=== PATIENT | female | born 1930 | race Caucasian/White ===

== ENCOUNTER 2017-01-01 13:40 | Outpatient (CLI) | payer MEDICARE, OTHER | END 2017-01-01 13:41 | disposition home or self-care (01) | DX: G47.33 Obstructive sleep apnea (adult) (pediatric) (principal); G47.61 Periodic limb movement disorder | CPT/HCPCS: 99214; G0463 ==

== ENCOUNTER 2017-02-06 09:51 | Outpatient (CLI) | payer MEDICARE, OTHER | END 2017-02-06 09:52 | disposition home or self-care (01) | DX: I10 Essential (primary) hypertension (principal); E78.5 Hyperlipidemia, unspecified; E11.9 Type 2 diabetes mellitus without complications ==

== ENCOUNTER 2017-05-16 07:10 | Outpatient (CLI) | payer MEDICARE, OTHER ==
[2017-05-16 13:04] LABS: BASOPHILS % (AUTO) 0.7 %; EOSINOPHILS # (AUTO) 0.1 10^3/uL (0.0-0.7); EOSINOPHILS % (AUTO) 3.2 %; HCT - HEMATOCRIT 40.1 % (37.0-47.0); HGB - HEMOGLOBIN 13.4 g/dL (12.0-16.0); LYMPHOCYTES # (AUTO) 1.3 10^3/uL (1.5-3.5); LYMPHOCYTES % (AUTO) 28.8 %; MEAN CORPUSCULAR HEMOGLOBIN 32.1 pg (27.0-31.0); MEAN CORPUSCULAR HGB CONC 33.5 g/dL (32.0-36.0); MEAN CORPUSCULAR VOLUME 95.8 fL (81.0-99.0); MEAN PLATELET VOLUME 8.5 fL (7.9-10.8); MONOCYTES # (AUTO) 0.4 10^3/uL (0.0-1.0); MONOCYTES % (AUTO) 8.7 %; NEUTROPHILS # (AUTO) 2.7 10^3/uL (1.5-6.6); NEUTROPHILS % (AUTO) 58.6 %; RED BLOOD COUNT 4.18 10^6/uL (4.20-5.40); RED CELL DISTRIBUTION WIDTH 13.5 % (12.0-15.0); UNCORRECTED WHITE BLOOD COUNT 4.6 x10^3/uL; WHITE BLOOD COUNT 4.6 x10^3/uL (4.8-10.8)
[2017-05-16 13:36] LABS: ALBUMIN/GLOBULIN RATIO 1.3 (1.0-2.2); BILIRUBIN,TOTAL 0.6 mg/dL (0.2-1.0); BUN - BLOOD UREA NITROGEN 17 mg/dL (6-20); CALCIUM 9.4 mg/dL (8.5-10.3); CARBON DIOXIDE - CO2 31 mmol/L (21-32); CHLORIDE 97 mmol/L (101-111); CHOL/HDL RATIO 2.5 (<4.4); CHOLESTEROL 171 mg/dL; CREATININE 0.8 mg/dL (0.4-1.0); GFR - MDRD 68 (>89); GLUCOSE 179 mg/dL (70-100); HDL CHOLESTEROL 68 mg/dL; LDL/HDL RATIO 1.3 (<4.4); POTASSIUM 3.9 mmol/L (3.5-5.0); SODIUM 137 mmol/L (135-145); TOTAL PROTEIN 6.9 g/dL (6.7-8.2); TRIGLYCERIDES 91 mg/dL; VLDL CHOLESTEROL 18 mg/dL
[2017-05-16 14:16] LABS: HEMOGLOBIN A1C 0.94 g/dL
== END 2017-05-16 07:11 | disposition home or self-care (01) ==
LOC: LAB.WCP 07:10
PROVIDERS: ATTEND Family Medicine
DX: I10 Essential (primary) hypertension (principal)
CPT/HCPCS: 36415; 80053; 80061; 83036; 85025

== ENCOUNTER 2017-07-01 08:00 | Outpatient (CLI) | payer MEDICARE, OTHER ==
[2017-07-01 19:48] LABS: ALBUMIN/GLOBULIN RATIO 1.1 (1.0-2.2); BILIRUBIN,TOTAL 0.7 mg/dL (0.2-1.0); CALCIUM 9.6 mg/dL (8.5-10.3); CREATININE 0.9 mg/dL (0.4-1.0); POTASSIUM 4.3 mmol/L (3.5-5.0); TOTAL PROTEIN 7.6 g/dL (6.7-8.2)
== END 2017-07-01 08:01 | disposition home or self-care (01) ==
LOC: LAB.WCP 08:00
PROVIDERS: ATTEND Family Medicine
DX: I10 Essential (primary) hypertension (principal)
CPT/HCPCS: 36415; 80053

== ENCOUNTER 2017-08-14 08:39 | Outpatient (CLI) | payer MEDICARE, OTHER ==
[2017-08-14 12:48] LABS: BASOPHILS # (AUTO) 0.1 10^3/uL (0.0-0.1); BASOPHILS % (AUTO) 0.9 %; EOSINOPHILS # (AUTO) 0.1 10^3/uL (0.0-0.7); EOSINOPHILS % (AUTO) 1.8 %; HCT - HEMATOCRIT 40.5 % (37.0-47.0); HGB - HEMOGLOBIN 13.8 g/dL (12.0-16.0); LYMPHOCYTES # (AUTO) 1.3 10^3/uL (1.5-3.5); LYMPHOCYTES % (AUTO) 23.2 %; MEAN CORPUSCULAR HEMOGLOBIN 32.6 pg (27.0-31.0); MEAN CORPUSCULAR HGB CONC 33.9 g/dL (32.0-36.0); MEAN PLATELET VOLUME 8.3 fL (7.9-10.8); MONOCYTES # (AUTO) 0.5 10^3/uL (0.0-1.0); MONOCYTES % (AUTO) 8.3 %; NEUTROPHILS # (AUTO) 3.8 10^3/uL (1.5-6.6); NEUTROPHILS % (AUTO) 65.8 %; RED BLOOD COUNT 4.22 10^6/uL (4.20-5.40); RED CELL DISTRIBUTION WIDTH 13.4 % (12.0-15.0); UNCORRECTED WHITE BLOOD COUNT 5.8 x10^3/uL; WHITE BLOOD COUNT 5.8 x10^3/uL (4.8-10.8)
[2017-08-14 13:28] LABS: ALBUMIN/GLOBULIN RATIO 1.1 (1.0-2.2); BILIRUBIN,TOTAL 0.5 mg/dL (0.2-1.0); BUN - BLOOD UREA NITROGEN 16 mg/dL (6-20); CALCIUM 9.3 mg/dL (8.5-10.3); CARBON DIOXIDE - CO2 31 mmol/L (21-32); CHLORIDE 97 mmol/L (101-111); CHOL/HDL RATIO 2.4 (<4.4); CHOLESTEROL 151 mg/dL; CREATININE 0.8 mg/dL (0.4-1.0); GFR - MDRD 68 (>89); GLUCOSE 150 mg/dL (70-100); HDL CHOLESTEROL 63 mg/dL; HEMOGLOBIN A1C 0.96 g/dL; LDL/HDL RATIO 1.2 (<4.4); POTASSIUM 4.2 mmol/L (3.5-5.0); SODIUM 134 mmol/L (135-145); TOTAL PROTEIN 7.3 g/dL (6.7-8.2); TRIGLYCERIDES 73 mg/dL; VLDL CHOLESTEROL 15 mg/dL
== END 2017-08-14 08:40 | disposition home or self-care (01) ==
LOC: LAB.WCP 08:39
PROVIDERS: ATTEND Family Medicine
DX: I10 Essential (primary) hypertension (principal); E11.9 Type 2 diabetes mellitus without complications; E78.5 Hyperlipidemia, unspecified
CPT/HCPCS: 36415; 80053; 80061; 82043; 83036; 85025

== ENCOUNTER 2018-02-21 08:00 | Outpatient (CLI) | payer MEDICARE, OTHER ==
[2018-02-21 12:32] LABS: BASOPHILS # (AUTO) 0.1 10^3/uL (0.0-0.1); BASOPHILS % (AUTO) 0.8 %; EOSINOPHILS # (AUTO) 0.2 10^3/uL (0.0-0.7); EOSINOPHILS % (AUTO) 2.5 %; HGB - HEMOGLOBIN 13.5 g/dL (12.0-16.0); LYMPHOCYTES # (AUTO) 1.5 10^3/uL (1.5-3.5); LYMPHOCYTES % (AUTO) 24.7 %; MEAN CORPUSCULAR HEMOGLOBIN 32.3 pg (27.0-31.0); MEAN CORPUSCULAR HGB CONC 33.5 g/dL (32.0-36.0); MEAN CORPUSCULAR VOLUME 96.4 fL (81.0-99.0); MEAN PLATELET VOLUME 8.6 fL (7.9-10.8); MONOCYTES # (AUTO) 0.5 10^3/uL (0.0-1.0); MONOCYTES % (AUTO) 8.8 %; NEUTROPHILS # (AUTO) 3.8 10^3/uL (1.5-6.6); NEUTROPHILS % (AUTO) 63.2 %; PLT - PLATELET COUNT 169 10^3/uL (130-450); RED BLOOD COUNT 4.18 10^6/uL (4.20-5.40); RED CELL DISTRIBUTION WIDTH 14.1 % (12.0-15.0)
[2018-02-21 12:57] LABS: ALBUMIN 3.8 g/dL (3.2-5.5); ALBUMIN/GLOBULIN RATIO 1.2 (1.0-2.2); ALKALINE PHOSPHATASE 55 IU/L (42-121); ALT ALANINE AMINOTRANSFERASE 11 IU/L (10-60); AST ASPARTATE AMINOTRANSFERASE 22 IU/L (10-42); BILIRUBIN,TOTAL 0.7 mg/dL (0.2-1.0); BUN - BLOOD UREA NITROGEN 24 mg/dL (6-20); CALCIUM 9.3 mg/dL (8.5-10.3); CARBON DIOXIDE - CO2 26 mmol/L (21-32); CHLORIDE 99 mmol/L (101-111); CHOL/HDL RATIO 2.5 (<4.4); CHOLESTEROL 175 mg/dL; CREATININE 0.8 mg/dL (0.4-1.0); GFR - MDRD 68 (>89); GLUCOSE 166 mg/dL (70-100); HDL CHOLESTEROL 69 mg/dL; LDL CHOLESTEROL,CALCULATED 87 mg/dL; LDL/HDL RATIO 1.3 (<4.4); SODIUM 135 mmol/L (135-145); TOTAL PROTEIN 7.1 g/dL (6.7-8.2); VLDL CHOLESTEROL 19 mg/dL
[2018-02-21 13:19] LABS: HB2 TOTAL 14.6 g/dL; HEMOGLOBIN A1C 0.99 g/dL; HEMOGLOBIN A1C % 8.4 % (4.6-6.2)
== END 2018-02-21 08:01 | disposition home or self-care (01) ==
LOC: LAB.WCP 08:00
PROVIDERS: ATTEND Family Medicine
DX: E11.29 Type 2 diabetes mellitus with other diabetic kidney complication (principal); I48.0 Paroxysmal atrial fibrillation; E78.5 Hyperlipidemia, unspecified; I10 Essential (primary) hypertension
CPT/HCPCS: 36415; 80053; 80061; 82043; 83036; 83721; 84443; 85025

== ENCOUNTER 2018-03-28 08:00 | Outpatient (CLI) | payer MEDICARE, OTHER ==
[2018-03-28 19:35] LABS: CALCIUM 9.5 mg/dL (8.5-10.3); CREATININE 0.9 mg/dL (0.4-1.0)
== END 2018-03-28 08:01 | disposition home or self-care (01) ==
LOC: LAB.WCP 08:00
PROVIDERS: ATTEND Family Medicine
DX: I10 Essential (primary) hypertension (principal)
CPT/HCPCS: 36415; 80048

== ENCOUNTER 2018-04-15 08:00 | Outpatient (CLI) | payer MEDICARE, OTHER ==
[2018-04-15 19:24] LABS: CALCIUM 9.5 mg/dL (8.5-10.3); CREATININE 0.7 mg/dL (0.4-1.0)
== END 2018-04-15 08:01 ==
LOC: LAB.WCP 08:00
PROVIDERS: ATTEND Family Medicine
DX: I10 Essential (primary) hypertension (principal)
CPT/HCPCS: 36415; 80048

== ENCOUNTER 2018-06-30 11:07 | Outpatient (CLI) | payer MEDICARE, OTHER ==
[2018-06-30 19:48] LABS: CALCIUM 9.3 mg/dL (8.5-10.3); CREATININE 0.8 mg/dL (0.4-1.0)
== END 2018-06-30 11:08 ==
LOC: LAB.WCP 11:07
PROVIDERS: ATTEND Family Medicine
DX: I10 Essential (primary) hypertension (principal)
CPT/HCPCS: 36415; 80048

== ENCOUNTER 2018-07-14 13:18 | Outpatient (CLI) | payer MEDICARE, OTHER ==
[2018-07-14 12:49] LABS: BASOPHILS % (AUTO) 0.9 %; EOSINOPHILS # (AUTO) 0.2 10^3/uL (0.0-0.7); EOSINOPHILS % (AUTO) 3.1 %; HGB - HEMOGLOBIN 13.4 g/dL (12.0-16.0); LYMPHOCYTES # (AUTO) 1.5 10^3/uL (1.5-3.5); LYMPHOCYTES % (AUTO) 26.6 %; MEAN CORPUSCULAR HEMOGLOBIN 32.5 pg (27.0-31.0); MEAN CORPUSCULAR HGB CONC 33.5 g/dL (32.0-36.0); MEAN PLATELET VOLUME 8.3 fL (7.9-10.8); MONOCYTES # (AUTO) 0.5 10^3/uL (0.0-1.0); MONOCYTES % (AUTO) 9.6 %; NEUTROPHILS # (AUTO) 3.4 10^3/uL (1.5-6.6); NEUTROPHILS % (AUTO) 59.8 %; PLT - PLATELET COUNT 193 10^3/uL (130-450); RED BLOOD COUNT 4.12 10^6/uL (4.20-5.40); RED CELL DISTRIBUTION WIDTH 13.3 % (12.0-15.0); WHITE BLOOD COUNT 5.7 x10^3/uL (4.8-10.8)
[2018-07-14 13:31] LABS: ALBUMIN 4.1 g/dL (3.2-5.5); ALBUMIN/GLOBULIN RATIO 1.2 (1.0-2.2); ALKALINE PHOSPHATASE 51 IU/L (42-121); ALT ALANINE AMINOTRANSFERASE 13 IU/L (10-60); AST ASPARTATE AMINOTRANSFERASE 27 IU/L (10-42); BILIRUBIN,TOTAL 0.8 mg/dL (0.2-1.0); BUN - BLOOD UREA NITROGEN 19 mg/dL (6-20); CALCIUM 9.7 mg/dL (8.5-10.3); CARBON DIOXIDE - CO2 29 mmol/L (21-32); CHLORIDE 96 mmol/L (101-111); CHOL/HDL RATIO 2.1 (<4.4); CHOLESTEROL 166 mg/dL; CREATININE 0.9 mg/dL (0.4-1.0); GFR - MDRD 59 (>89); GLUCOSE 164 mg/dL (70-100); HDL CHOLESTEROL 79 mg/dL; LDL CHOLESTEROL,CALCULATED 70 mg/dL; LDL/HDL RATIO 0.9 (<4.4); SODIUM 133 mmol/L (135-145); TOTAL PROTEIN 7.4 g/dL (6.7-8.2); VLDL CHOLESTEROL 17 mg/dL
[2018-07-14 14:12] LABS: HB2 TOTAL 14.1 g/dL; HEMOGLOBIN A1C 0.96 g/dL; HEMOGLOBIN A1C % 8.4 % (4.6-6.2)
== END 2018-07-14 13:19 | disposition home or self-care (01) ==
LOC: LAB.WCP 13:18
PROVIDERS: ATTEND Family Medicine
DX: I10 Essential (primary) hypertension (principal); E11.9 Type 2 diabetes mellitus without complications; E78.5 Hyperlipidemia, unspecified
CPT/HCPCS: 36415; 80053; 80061; 83036; 83721; 85025

== ENCOUNTER 2018-09-25 11:39 | Outpatient (CLI) | payer MEDICARE, OTHER | END 2018-09-25 11:40 | disposition critical access hospital (66) | LOC: EMS 11:39 | PROVIDERS: ATTEND Surgery | DX: M54.9 Dorsalgia, unspecified (principal) | CPT/HCPCS: A0425; A0429 ==

== ENCOUNTER 2018-09-25 11:43 | Emergency (ER) | payer MEDICARE, OTHER ==
--- NOTE | 2018-09-25 12:03 | ED Physician Documentation ---
PD HPI BACK PAIN - Stated complaint Stated Complaint: BACK PAIN - Chief complaint Chief Complaint: Back Pain - History obtained from History obtained from: Patient - History of Present Illness Timing - onset: How many weeks ago (1) Timing - duration: Weeks (1) Timing - details: Abrupt onset (onset of lumbar pain a week ago without noted injury, was just bending over, but was abrupt and continued.), Still present, Waxing and waning Location: Lower, Other (midline and slightly to right) Quality: Pain. No: Spasm Associated symptoms: No: Fever, Weakness, Numbness, Incontinent of urine Improves with: Rest. No: Meds (seen by PMD and had xray of lumbar which was reportedly without acute process and Rx with Tylenol#3 and order for PT, which was to start today. Patient in pain with ROM and PT would not start on her without some improvement in the pain. Patient and family state no improvement with the codeine.) Worsened by: Movement. No: Palpation Contributing factors: No: Lifting, Twisting, Trauma (was just bending over when pain started.) Similar symptoms before: Has not had sx before (has had prior spinal fusion surgery years ago with some back pains at times. Current pain is unusual.) Recently seen: Clinic Review of Systems Constitutional: denies: Fever, Chills Nose: denies: Rhinorrhea / runny nose, Congestion Throat: denies: Sore throat Cardiac: denies: Chest pain / pressure Respiratory: denies: Cough GI: reports: Constipation (for past several days/week.). 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 HEENT: Cataracts, Other - Present Medications Home Medications: Ambulatory Orders Medication Instructions Recorded Confirmed Atorvastatin Calcium 09/25/18 Biotin 09/25/18 Cholecalciferol (Vitamin D3) 09/25/18 [Vitamin D3] Dexamethasone [Decadron] 4 mg PO DAILY #5 tablet 09/25/18 Docusate Sodium 100 mg PO DAILY #30 capsule 09/25/18 Felodipine [Felodipine ER] 09/25/18 Methocarbamol [Robaxin] 500 mg PO Q6H PRN #25 tablet 09/25/18 [place]-3S/Dha/Epa/Fish Oil [Fish 09/25/18 Oil 1,200 mg Softgel] Potassium Chloride [Klor-Con 10] 09/25/18 Sotalol HCl [Betapace] 09/25/18 Terbinafine HCl [Lamisil At] 09/25/18 Timolol 0.5% Ophth Drops [Timoptic 09/25/18 0.5% Ophth Drops] Valsartan 09/25/18 Warfarin Sodium [Jantoven] 09/25/18 glipiZIDE ER [Glucotrol Xl] 09/25/18 hydroCHLOROthiazide 09/25/18 [Hydrochlorothiazide] metFORMIN [Glucophage] 09/25/18 oxyCODONE [Roxicodone] 5 mg PO Q8H PRN #20 tablet 09/25/18 - Allergies Allergies/Adverse Reactions: Allergies Allergy/AdvReac Type Severity Reaction Status Date / Time No Known Drug Allergies Allergy Verified 09/25/18 11:47 - Social History Does the pt smoke?: No Smoking Status: Never smoker Does the pt drink ETOH?: No Does the pt have substance abuse?: No - Immunizations Immunizations are current?: Yes PD ED PE NORMAL - Vitals Vital signs reviewed: Yes - General General: Alert and oriented X 3, Well developed/nourished, Other (appears uncomfortable with ROM, and sitting/lying stiffly on cart. ) - HEENT HEENT: Atraumatic - Neck Neck: Supple, no meningeal sign, No adenopathy - Cardiac Cardiac: RRR, No murmur - Respiratory Respiratory: Clear bilaterally - Abdomen Abdomen: Soft, Non tender - Back Back: No CVA TTP, Other (some tenderness to percussion mid lumbar area. No rash nor redness. Mild muscular tenderness adjacent muscles. ) - Derm Derm: Normal color, Warm and dry - Extremities Extremities: No tenderness to palpate, Normal ROM s pain, No calf tenderness / cord, Other (mild edema in both legs. bruising noted anteriorly in both. ) - Neuro Neuro: Alert and oriented X 3, No motor deficit, No sensory deficit, Normal speech, Other (2+ reflexes at knees. ) Results - Vitals Vitals: Vital Signs - 24 hr 09/25/18 09/25/18 09/25/18 11:43 12:04 13:44 Temperature 36.7 C Heart Rate 66 63 60 Respiratory 16 16 Rate Blood Pressure 183/83 H 157/64 H 158/72 H O2 Saturation 99 97 97 09/25/18 09/25/18 14:30 14:36 Temperature 36.2 C L Heart Rate 64 64 Respiratory 16 18 Rate Blood Pressure 178/73 H 178/73 H O2 Saturation 94 95 Oxygen O2 Source Room air - Labs Labs: Laboratory Tests 09/25/18 13:15 PT 57.6 H INR 5.2 H* - Rads (name of study) lumbar CT Radiology: Prelim report reviewed (prior surgical changes. There is mild superior endplate compression fracture L1 without comparisons. No edema in the area.) PD MEDICAL DECISION MAKING - ED course Complexity details: reviewed results (L1 mild compression Fx, presume new. This is small enough to not need brace, and should not prohibit some PT to help with stregnthening and ROM. She was Rx T#3 without improvement, and we can Rx a better pain med. She was wanting stronger pain med in ER for ROM and given IM med. She felt "loopy" but improved enough pain to feel able to head home. Her INR was elevated but no change in diet or such and is usually in good range, so will just hold it 2 doses and then recheck without changing baseline dosing. Could be from altered stool output or recent med. ), re-evaluated patient, considered differential, d/w patient, d/w family Departure - Departure Disposition: 01 Home, Self Care Clinical Impression: Lumbar back pain, Compression fracture, Elevated INR Condition: Stable Record reviewed to determine appropriate education?: Yes Instructions: ED Fx Comp Vertebral Prescriptions: Dexamethasone [Decadron] 4 mg PO DAILY #5 tablet Docusate Sodium 100 mg PO DAILY #30 capsule Methocarbamol [Robaxin] 500 mg PO Q6H PRN #25 tablet PRN Reason: Spasms oxyCODONE [Roxicodone] 5 mg PO Q8H PRN #20 tablet PRN Reason: Pain Comments: There is a very mild compression fracture deformity at the top part of L1. This could be a chronic finding but I did not have a comparison view at this point. It could correlate with your pain however and so we should treat it which would be really just pain medicine, anti-inflammatories and muscle relaxant. Physical therapy is reasonable and just tell them about the finding and they should be able to accommodate the range of motion exercises. There is no need for a brace in particular. Follow-up with your primary care early next week for reevaluation of the pain and also a recheck of your INR. Your INR was elevated today so we will hold your warfarin tonight and tomorrow and then resume normal doses. Add a stool softener docusate daily to reduce constipation from the pain medicine. Forms: Activity restrictions Discharge Date/Time: 09/25/18 14:39
[2018-09-25] MEDS ORDERED: DEXAMETHASONE 10 MG/ML VIAL PO STA (12:26)
[2018-09-25] MEDS ORDERED: METHOCARBAMOL 500 MG TABLET PO STA (12:26)
[2018-09-25] MEDS ORDERED: KETOROLAC 15 MG/ML VIAL IM STA (12:26)
[2018-09-25] MEDS ORDERED: HYDROmorphone 1 MG/ML CARPUJECT IM STA (12:26)
[2018-09-25 13:37] LABS: PT - PROTHROMBIN TIME 57.6 secs (9.9-12.6)
[2018-09-25 13:41] LABS: INR 5.2 (0.8-1.2)
--- NOTE | 2018-09-25 13:41 | CT Report ---
Reason: low back pain several days; no trauma Procedure Date: 09/25/2018 Accession Number: [id number] / [id number] Procedure: CT - Lumbar Spine W/O CPT Code: FULL RESULT: EXAM: CT LUMBAR SPINE WITHOUT CONTRAST EXAM DATE: 09/25/2018 12:49 PM. CLINICAL HISTORY: Low back pain for several days; no trauma. COMPARISONS: Lumbar spine 2 views 09/23/2018 11:14 AM. X-ray chest PA and lateral 12/16/2012 10:38 AM. TECHNIQUE: Thin-section axial images were acquired of the lumbar spine from T12 to S1 without contrast. Post-processing: Coronal and sagittal reformats. Other: None. In accordance with CT protocol optimization, one or more of the following dose reduction techniques were utilized for this exam: automated exposure control, adjustment of mA and/or KV based on patient size, or use of iterative reconstructive technique. FINDINGS: Alignment: Moderate, 22 degree, dextrorotatory scoliosis is seen centered at L2. 5 mm right lateral subluxation of L1 in relation to T12 and L3 in relation to L4 is noted. Multilevel listhesis is seen, includin.5 mm spondylolisthesis at L4-L5, 3.5 mm retrolisthesis at L1-L2, 4 mm retrolisthesis at T12-L1. Bones: Note is made of a transitional vertebrae at the lumbosacral junction. Correlating with prior lumbar spine plain films and chest x-ray, numbering assumes partial sacralization of L5 bilaterally, greater on the left. An L5-S1 hypoplastic disk level is present. Hypoplastic ribs are seen at T12 bilaterally. There is an acute mild compression fracture of the L1 vertebral body superior endplate. Mild, 25%, compression deformity is seen. Multiple peripheral fracture fragments are seen from the superior endplate projected outward. Mild broad-based retropulsion of the superior endplate is seen effacing the ventral thecal sac, without underlying canal stenosis. Disk Levels/Facets: T11-T12: Moderate bridging right anterolateral osteophyte formation. T12-L1: L1 superior endplate fracture. Vacuum cleft phenomenon. Mild retrolisthesis. Mild circumferential bulge of disk/osteophyte complex, as well as L1 superior endplate fracture fragments. No stenosis. L1-L2: Mild loss of disk space height is seen, greater to the left. Vacuum cleft phenomenon. Mild retrolisthesis. Mild dorsal with moderate lateral and ventral circumferential disk bulge. Left osseous foraminal stenosis. L2-L3: Mild left-sided degenerative facet change. Mild circumferential disk bulge. Mild effacement of exited left L2 nerve root. Mild lateral foraminal stenosis. L3-L4: Postoperative change from a right central laminotomy and partial facetectomy. Moderate degenerative facet change. Mild circumferential disk bulge. Effacement of exiting L3 nerve roots. Mild bilateral foraminal stenosis. L4-L5: Postoperative change from a right central laminectomy and partial facetectomy. Moderate hypertrophic degenerative facet change. Mild circumferential disk bulge. No stenosis. L5-S1: Unremarkable. Partial sacralization of L5. No stenosis. Musculature: Fatty atrophy of posterior paraspinous musculature is seen in the mid and lower lumbar and upper sacral region. Other: Mild atelectasis or scarring is seen in the posterior lung bases bilaterally. An oval 13 mm calcified nodule is seen in the posteromedial inferior left costophrenic sulcus. Marked vascular calcification is seen involving visualized aorta, great vessels off the aorta, and iliac arteries. Calcification nearly completely fills the lumen of the proximal right common iliac artery at the level of the aortic bifurcation. Severe stenosis at this site is suspected. The partially visualized retroperitoneum is unremarkable. IMPRESSION: 1. 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 This is assumed to represent partial sacralization of L5 greater on the left. Hypoplastic ribs are seen at T12 bilaterally. 2. Mild compression fracture of the L1 superior endplate. Multiple fracture fragments are seen radiating outward from the superior endplate. 3. Moderate dextrorotatory scoliosis of the lumbar spine. Right lateral subluxation of L1 in relation to T12 and L3 in relation to L4 is seen. Multilevel listhesis is noted. 4. Marked atherosclerotic vascular calcification. 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 5. Postoperative change and spondylosis throughout the lumbar spine as noted above. RADIA
[2018-09-25 14:33] VITALS: BP 178/73
== END 2018-09-25 14:39 | disposition home or self-care (01) ==
LOC: ED 11:43
DX: M54.5 Low back pain (principal); S32.018A Other fracture of first lumbar vertebra, initial encounter for closed fracture; X58.XXXA Exposure to other specified factors, initial encounter; R79.1 Abnormal coagulation profile; I10 Essential (primary) hypertension; E11.9 Type 2 diabetes mellitus without complications; I48.91 Unspecified atrial fibrillation; Z79.01 Long term (current) use of anticoagulants
CPT/HCPCS: 72131; 85610; 96372; 99283; 99284; A9270; J1170

== ENCOUNTER 2018-10-15 10:45 | Outpatient (CLI) | payer MEDICARE, OTHER ==
[2018-10-15 19:08] LABS: PT - PROTHROMBIN TIME 71.3 secs (9.9-12.6)
[2018-10-15 19:21] LABS: HB2 TOTAL 13.2 g/dL; HEMOGLOBIN A1C 0.93 g/dL; HEMOGLOBIN A1C % 8.6 % (4.6-6.2)
[2018-10-15 19:25] LABS: BASOPHILS % (AUTO) 0.4 %; EOSINOPHILS # (AUTO) 0.1 10^3/uL (0.0-0.7); HGB - HEMOGLOBIN 12.3 g/dL (12.0-16.0); LYMPHOCYTES # (AUTO) 0.9 10^3/uL (1.5-3.5); LYMPHOCYTES % (AUTO) 14.3 %; MEAN CORPUSCULAR HEMOGLOBIN 32.6 pg (27.0-31.0); MEAN CORPUSCULAR HGB CONC 33.2 g/dL (32.0-36.0); MEAN CORPUSCULAR VOLUME 98.4 fL (81.0-99.0); MEAN PLATELET VOLUME 6.9 fL (7.9-10.8); MONOCYTES # (AUTO) 0.6 10^3/uL (0.0-1.0); MONOCYTES % (AUTO) 8.9 %; NEUTROPHILS # (AUTO) 4.9 10^3/uL (1.5-6.6); NEUTROPHILS % (AUTO) 75.4 %; PLT - PLATELET COUNT 270 10^3/uL (130-450); RED BLOOD COUNT 3.77 10^6/uL (4.20-5.40); RED CELL DISTRIBUTION WIDTH 13.3 % (12.0-15.0); WHITE BLOOD COUNT 6.5 x10^3/uL (4.8-10.8)
[2018-10-15 19:35] LABS: ALBUMIN 3.3 g/dL (3.2-5.5); ALBUMIN/GLOBULIN RATIO 0.9 (1.0-2.2); ALKALINE PHOSPHATASE 106 IU/L (42-121); ALT ALANINE AMINOTRANSFERASE 17 IU/L (10-60); AST ASPARTATE AMINOTRANSFERASE 26 IU/L (10-42); BILIRUBIN,TOTAL 0.5 mg/dL (0.2-1.0); BUN - BLOOD UREA NITROGEN 17 mg/dL (6-20); CALCIUM 8.9 mg/dL (8.5-10.3); CARBON DIOXIDE - CO2 28 mmol/L (21-32); CHLORIDE 89 mmol/L (101-111); CHOL/HDL RATIO 2.5 (<4.4); CHOLESTEROL 135 mg/dL; CREATININE 0.9 mg/dL (0.4-1.0); GFR - MDRD 59 (>89); GLUCOSE 314 mg/dL (70-100); HDL CHOLESTEROL 53 mg/dL; LDL CHOLESTEROL,CALCULATED 59 mg/dL; LDL/HDL RATIO 1.1 (<4.4); SODIUM 127 mmol/L (135-145); TOTAL PROTEIN 6.8 g/dL (6.7-8.2); VLDL CHOLESTEROL 23 mg/dL
[2018-10-15 19:59] LABS: INR 6.4 (0.8-1.2)
== END 2018-10-15 10:46 ==
LOC: LAB.WCP 10:45
PROVIDERS: ATTEND Family Medicine
DX: I10 Essential (primary) hypertension (principal); E11.9 Type 2 diabetes mellitus without complications; Z79.01 Long term (current) use of anticoagulants; E78.5 Hyperlipidemia, unspecified; I48.0 Paroxysmal atrial fibrillation
CPT/HCPCS: 36415; 80053; 80061; 83036; 83721; 85025; 85610

== ENCOUNTER → 2018-10-21 | Outpatient (CLI) | payer MEDICARE, OTHER ==
[2018-10-21 19:15] LABS: INR 9.6 (0.8-1.2)
== END ==
LOC: LAB.WCP 08:00
PROVIDERS: ATTEND Family Medicine
DX: Z79.01 Long term (current) use of anticoagulants (principal)
CPT/HCPCS: 36415; 85610

== ENCOUNTER 2018-11-19 18:49 | Outpatient (CLI) | payer MEDICARE, OTHER ==
--- NOTE | 2018-11-20 15:29 | Ultrasound Report ---
Reason: HYPERTENSION,BENIGN ESSENTIAL Procedure Date: 11/19/2018 Accession Number: [id number] / [id number] Procedure: US - Retroperitoneal CPT Code: FULL RESULT: EXAM: RENAL ULTRASOUND. EXAM DATE: 11/19/2018 08:42 PM. CLINICAL HISTORY: Hypertension, benign essential. COMPARISON: None. TECHNIQUE: Real-time scanning was performed with static images obtained. FINDINGS: Right Kidney: 8.8 x 3.7 x 4.3 cm. Normal echotexture with no stones, contour-deforming masses, or hydronephrosis. Left Kidney: 9.7 x 4.7 x 4.5 cm. Normal echotexture with no stones, contour-deforming masses, or hydronephrosis. Bladder: Bilateral jets seen. The prevoid bladder volume was 692 cc. The postvoid bladder volume was 715 cc. Other: None. IMPRESSION: No specific anatomic abnormalities of the kidneys or bladder. Large postvoiding residual; patient essentially unable to void for this exam. RADIA
== END 2018-11-19 18:50 | disposition home or self-care (01) ==
LOC: DI 18:49
PROVIDERS: ATTEND Family Medicine
DX: I10 Essential (primary) hypertension (principal)
CPT/HCPCS: 76770

== ENCOUNTER 2019-01-06 13:30 | Outpatient (CLI) | payer MEDICARE, OTHER ==
[2019-01-06 18:59] LABS: BASOPHILS % (AUTO) 0.5 %; EOSINOPHILS % (AUTO) 0.5 %; HGB - HEMOGLOBIN 12.2 g/dL (12.0-16.0); LYMPHOCYTES # (AUTO) 1.4 10^3/uL (1.5-3.5); LYMPHOCYTES % (AUTO) 19.3 %; MEAN CORPUSCULAR HEMOGLOBIN 32.1 pg (27.0-31.0); MEAN CORPUSCULAR HGB CONC 32.8 g/dL (32.0-36.0); MEAN PLATELET VOLUME 7.6 fL (7.9-10.8); MONOCYTES # (AUTO) 0.7 10^3/uL (0.0-1.0); MONOCYTES % (AUTO) 9.9 %; NEUTROPHILS # (AUTO) 5.1 10^3/uL (1.5-6.6); NEUTROPHILS % (AUTO) 69.8 %; PLT - PLATELET COUNT 295 10^3/uL (130-450); RED BLOOD COUNT 3.79 10^6/uL (4.20-5.40); WHITE BLOOD COUNT 7.3 x10^3/uL (4.8-10.8)
[2019-01-06 19:34] LABS: HB2 TOTAL 13.3 g/dL; HEMOGLOBIN A1C 0.69 g/dL; HEMOGLOBIN A1C % 6.9 % (4.6-6.2)
[2019-01-06 19:35] LABS: ALBUMIN 3.5 g/dL (3.2-5.5); ALBUMIN/GLOBULIN RATIO 0.9 (1.0-2.2); ALKALINE PHOSPHATASE 63 IU/L (42-121); ALT ALANINE AMINOTRANSFERASE 10 IU/L (10-60); AST ASPARTATE AMINOTRANSFERASE 22 IU/L (10-42); BILIRUBIN,TOTAL 0.5 mg/dL (0.2-1.0); BUN - BLOOD UREA NITROGEN 13 mg/dL (6-20); CARBON DIOXIDE - CO2 27 mmol/L (21-32); CHLORIDE 89 mmol/L (101-111); CHOL/HDL RATIO 2.2 (<4.4); CHOLESTEROL 145 mg/dL; CREATININE 0.7 mg/dL (0.4-1.0); GFR - MDRD 79 (>89); GLUCOSE 201 mg/dL (70-100); HDL CHOLESTEROL 65 mg/dL; LDL CHOLESTEROL,CALCULATED 55 mg/dL; LDL/HDL RATIO 0.8 (<4.4); SODIUM 130 mmol/L (135-145); TOTAL PROTEIN 7.4 g/dL (6.7-8.2); VLDL CHOLESTEROL 25 mg/dL
== END 2019-01-06 13:31 | disposition home or self-care (01) ==
LOC: LAB.WCP 13:30
PROVIDERS: ATTEND Family Medicine
DX: I10 Essential (primary) hypertension (principal); E11.9 Type 2 diabetes mellitus without complications; E78.5 Hyperlipidemia, unspecified
CPT/HCPCS: 36415; 80053; 80061; 83036; 83721; 85025

== ENCOUNTER 2019-02-03 08:00 | Outpatient (CLI) | payer MEDICARE, OTHER | END 2019-02-03 23:59 | disposition home or self-care (01) | LOC: LAB.WCP 08:00 | PROVIDERS: ATTEND Family Medicine | DX: I48.0 Paroxysmal atrial fibrillation (principal); Z79.01 Long term (current) use of anticoagulants ==

== ENCOUNTER 2019-02-10 08:00 | Outpatient (CLI) | payer MEDICARE, OTHER | END 2019-02-10 23:59 | disposition home or self-care (01) | LOC: LAB.WCP 08:00 | PROVIDERS: ATTEND Physician Assistant | DX: I48.0 Paroxysmal atrial fibrillation (principal); Z79.01 Long term (current) use of anticoagulants ==

== ENCOUNTER 2019-02-16 12:33 | Outpatient (CLI) | payer MEDICARE, OTHER ==
--- NOTE | 2019-02-16 15:25 | Ultrasound Report ---
Reason: URINARY BLADDER RETENTION Procedure Date: 02/16/2019 Accession Number: [id number] / [id number] Procedure: US - Bladder CPT Code: FULL RESULT: EXAM: PELVIS ULTRASOUND, LIMITED EXAM DATE: 02/16/2019 01:10 PM. CLINICAL HISTORY: Urinary bladder retention. COMPARISON: None. TECHNIQUE: Real-time scanning was performed with static images obtained. FINDINGS: Pre-voiding urinary bladder is grossly unremarkable with pre-voiding volume of 438 cc. Postvoiding urinary bladder is unchanged at 441 cc. IMPRESSION: Patient unable to void/large postvoiding residual equal to pre-voiding bladder volume. RADIA
== END 2019-02-16 12:34 | disposition home or self-care (01) ==
LOC: DI 12:33
PROVIDERS: ATTEND Internal Medicine Nephrology
DX: R33.9 Retention of urine, unspecified (principal)
CPT/HCPCS: 76857

== ENCOUNTER 2019-02-18 08:00 | Outpatient (CLI) | payer MEDICARE, OTHER | END 2019-02-18 23:59 | disposition home or self-care (01) | LOC: LAB.WCP 08:00 | PROVIDERS: ATTEND Physician Assistant | DX: I48.0 Paroxysmal atrial fibrillation (principal); Z79.01 Long term (current) use of anticoagulants | CPT/HCPCS: 81025 ==

== ENCOUNTER 2019-02-24 08:00 | Outpatient (CLI) | payer MEDICARE, OTHER | END 2019-02-24 23:59 | disposition home or self-care (01) | LOC: LAB.WCP 08:00 | PROVIDERS: ATTEND Family Medicine | DX: I48.0 Paroxysmal atrial fibrillation (principal); Z79.01 Long term (current) use of anticoagulants ==

== ENCOUNTER 2019-03-10 08:00 | Outpatient (CLI) | payer MEDICARE, OTHER | END 2019-03-10 23:59 | disposition home or self-care (01) | LOC: LAB.WCP 08:00 | PROVIDERS: ATTEND Family Medicine | DX: I48.0 Paroxysmal atrial fibrillation (principal); Z79.01 Long term (current) use of anticoagulants ==

== ENCOUNTER 2019-04-16 08:01 | Outpatient (CLI) | payer MEDICARE, OTHER ==
[2019-04-16 13:18] LABS: ALBUMIN 3.6 g/dL (3.2-5.5); ALBUMIN/GLOBULIN RATIO 1.1 (1.0-2.2); ALKALINE PHOSPHATASE 59 IU/L (42-121); ALT ALANINE AMINOTRANSFERASE 10 IU/L (10-60); AST ASPARTATE AMINOTRANSFERASE 23 IU/L (10-42); BILIRUBIN,TOTAL 0.7 mg/dL (0.2-1.0); BUN - BLOOD UREA NITROGEN 17 mg/dL (6-20); CALCIUM 9.5 mg/dL (8.5-10.3); CARBON DIOXIDE - CO2 30 mmol/L (21-32); CHLORIDE 98 mmol/L (101-111); CHOL/HDL RATIO 2.4 (<4.4); CHOLESTEROL 160 mg/dL; CREATININE 0.8 mg/dL (0.4-1.0); GFR - MDRD 68 (>89); GLUCOSE 150 mg/dL (70-100); HDL CHOLESTEROL 68 mg/dL; LDL CHOLESTEROL,CALCULATED 78 mg/dL; LDL/HDL RATIO 1.1 (<4.4); SODIUM 135 mmol/L (135-145); VLDL CHOLESTEROL 14 mg/dL
[2019-04-16 13:24] LABS: BASOPHILS # (AUTO) 0.1 10^3/uL (0.0-0.1); BASOPHILS % (AUTO) 1.2 %; EOSINOPHILS # (AUTO) 0.2 10^3/uL (0.0-0.7); EOSINOPHILS % (AUTO) 2.9 %; LYMPHOCYTES # (AUTO) 1.6 10^3/uL (1.5-3.5); LYMPHOCYTES % (AUTO) 30.2 %; MEAN CORPUSCULAR HEMOGLOBIN 31.1 pg (27.0-31.0); MEAN CORPUSCULAR HGB CONC 33.1 g/dL (32.0-36.0); MEAN PLATELET VOLUME 8.1 fL (7.9-10.8); MONOCYTES # (AUTO) 0.4 10^3/uL (0.0-1.0); NEUTROPHILS % (AUTO) 57.7 %; PLT - PLATELET COUNT 225 10^3/uL (130-450); RED BLOOD COUNT 4.17 10^6/uL (4.20-5.40); RED CELL DISTRIBUTION WIDTH 14.6 % (12.0-15.0); WHITE BLOOD COUNT 5.3 x10^3/uL (4.8-10.8)
[2019-04-16 13:26] LABS: HB2 TOTAL 13.6 g/dL; HEMOGLOBIN A1C 0.81 g/dL; HEMOGLOBIN A1C % 7.6 % (4.6-6.2)
== END 2019-04-16 08:02 | disposition home or self-care (01) ==
LOC: LAB.WCP 08:01
PROVIDERS: ATTEND Family Medicine
DX: E87.1 Hypo-osmolality and hyponatremia (principal); E78.5 Hyperlipidemia, unspecified; I10 Essential (primary) hypertension; E11.9 Type 2 diabetes mellitus without complications
CPT/HCPCS: 36415; 80053; 80061; 83036; 83721; 85025

== ENCOUNTER 2019-05-19 15:32 | Outpatient (CLI) | payer MEDICARE, OTHER ==
--- NOTE | 2019-05-20 11:05 | XRAY Report ---
Reason: LOCALIZED SWELLING,MASS AND LUMP,LEFT UPPER LIMB Procedure Date: 05/19/2019 Accession Number: [id number] / [id number] Procedure: WCP - Forearm LT CPT Code: FULL RESULT: EXAM: LEFT FOREARM RADIOGRAPHY EXAM DATE: 05/19/2019 03:43 PM. CLINICAL HISTORY: Lump on midshaft of forearm. COMPARISON: None. TECHNIQUE: 2 views. FINDINGS: Bones: Advanced degenerative changes of the base of the thumb are noted. There is no radiographic osseous abnormality of the diaphysis of the radius or ulna. No fractures or bone lesions. Joints: Normal. No effusions or subluxations in the visualized wrist or elbow joints. Soft Tissues: Focal prominence of soft tissues is seen along the dorsal aspect of the forearm. IMPRESSION: No aggressive osseous lesion, fracture or dislocation is detected. RADIA
== END 2019-05-19 15:33 | disposition home or self-care (01) ==
LOC: DI.WCP 15:32
PROVIDERS: ATTEND Family Medicine
DX: R22.32 Localized swelling, mass and lump, left upper limb (principal)

== ENCOUNTER 2019-05-30 13:23 | Outpatient (CLI) | payer MEDICARE, OTHER ==
--- NOTE | 2019-06-02 09:39 | Ultrasound Report ---
Reason: LOCALIZED SWELLING, MASS AND LUMP IN LEFT ARM, UPPER LIMB Procedure Date: 05/30/2019 Accession Number: [id number] / [id number] Procedure: US - Ext Limited Non Vascular CPT Code: FULL RESULT: EXAM: LEFT UPPER EXTREMITY ULTRASOUND - LIMITED EXAM DATE: 05/30/2019 02:02 PM. CLINICAL HISTORY: LOCALIZED SWELLING, MASS AND LUMP IN LEFT ARM, UPPER LIMB. COMPARISON: None. TECHNIQUE: Real-time scanning was performed with static images obtained. FINDINGS: There is an approximately 1.1 x 0.5 x 1.9 cm heterogeneous, solid, subcutaneous focus at the posterior proximal left forearm which corresponds to the area of palpable concern. A small amount of blood flow is detected within this area. Selected sonographic images of the posterior aspect of the right upper extremity were also submitted for interpretation. No definite discrete cystic or solid mass is seen on these images. IMPRESSION: 1. A 1.1 x 0.5 x 1.9 cm indeterminate, heterogeneous, solid, mildly vascular subcutaneous focus at the posterior proximal left forearm. Differential may include a vascular lesion, focal cellulitis, or other mass including neoplasm. Consider further evaluation with a follow-up MRI of the forearm without and with intravenous contrast. RADIA
== END 2019-05-30 13:24 | disposition home or self-care (01) ==
LOC: DI 13:23
PROVIDERS: ATTEND Family Medicine
DX: R22.32 Localized swelling, mass and lump, left upper limb (principal)
CPT/HCPCS: 76882

== ENCOUNTER 2019-06-23 08:00 | Outpatient (CLI) | payer MEDICARE, OTHER | END 2019-06-23 08:01 | disposition home or self-care (01) | LOC: LAB.WCP 08:00 | PROVIDERS: ATTEND Family Medicine | DX: Z79.01 Long term (current) use of anticoagulants (principal) ==

== ENCOUNTER 2019-07-13 01:46 | Outpatient (CLI) | payer MEDICARE, OTHER | END 2019-07-13 01:47 | disposition EMS.NT | LOC: EMS 01:46 | PROVIDERS: ATTEND Surgery | DX: Z03.89 Encounter for observation for other suspected diseases and conditions ruled out (principal) ==

== ENCOUNTER 2019-07-14 04:49 | Outpatient (CLI) | payer MEDICARE, OTHER ==
[2019-07-14 18:56] LABS: BASOPHILS % (AUTO) 0.6 %; EOSINOPHILS # (AUTO) 0.1 10^3/uL (0.0-0.7); EOSINOPHILS % (AUTO) 1.3 %; HGB - HEMOGLOBIN 11.6 g/dL (12.0-16.0); LYMPHOCYTES # (AUTO) 1.2 10^3/uL (1.5-3.5); MEAN CORPUSCULAR HEMOGLOBIN 31.5 pg (27.0-31.0); MEAN CORPUSCULAR VOLUME 98.4 fL (81.0-99.0); MEAN PLATELET VOLUME 10.4 fL (7.9-10.8); MONOCYTES # (AUTO) 0.6 10^3/uL (0.0-1.0); MONOCYTES % (AUTO) 10.7 %; NEUTROPHILS # (AUTO) 3.3 10^3/uL (1.5-6.6); PLT - PLATELET COUNT 185 10^3/uL (130-450); RED BLOOD COUNT 3.68 10^6/uL (4.20-5.40); RED CELL DISTRIBUTION WIDTH 13.1 % (12.0-15.0); WHITE BLOOD COUNT 5.2 x10^3/uL (4.8-10.8)
[2019-07-14 19:42] LABS: ALBUMIN/GLOBULIN RATIO 1.3 (1.0-2.2); BILIRUBIN,TOTAL 0.7 mg/dL (0.2-1.0); CALCIUM 9.6 mg/dL (8.5-10.3); CREATININE 0.8 mg/dL (0.4-1.0); TOTAL PROTEIN 7.1 g/dL (6.7-8.2)
== END 2019-07-14 23:59 | disposition home or self-care (01) ==
LOC: LAB.R 04:49
PROVIDERS: ATTEND Family Medicine
DX: R53.1 Weakness (principal); E87.1 Hypo-osmolality and hyponatremia; N39.0 Urinary tract infection, site not specified; R60.0 Localized edema; I48.0 Paroxysmal atrial fibrillation; I50.9 Heart failure, unspecified
CPT/HCPCS: 80053; 83880; 84484; 85025; 87086

== ENCOUNTER 2019-07-14 15:59 | Outpatient (CLI) | payer MEDICARE, OTHER ==
--- NOTE | 2019-07-15 01:41 | XRAY Report ---
Reason: HYPOXIA Procedure Date: 07/14/2019 Accession Number: [id number] / [id number] Procedure: WCP - Chest 1 View X-Ray CPT Code: 86554 FULL RESULT: EXAM: CHEST RADIOGRAPHY EXAM DATE: 07/14/2019 03:59 PM. CLINICAL HISTORY: HYPOXIA. Weakness. COMPARISON: None. TECHNIQUE: 1 view. FINDINGS: Lungs/Pleura: No focal opacities evident. No pleural effusion. No pneumothorax. Mediastinum: Within exam limitations, the cardiomediastinal contour is normal. Other: Underpenetration of the lung bases due to overlying soft tissue. IMPRESSION: No acute cardiopulmonary disease seen. RADIA
== END 2019-07-14 23:59 | disposition home or self-care (01) ==
LOC: DI.WCP 15:59
PROVIDERS: ATTEND Family Medicine
DX: R09.02 Hypoxemia (principal)
CPT/HCPCS: 71045

== ENCOUNTER 2019-08-27 04:14 | Outpatient (CLI) | payer MEDICARE, OTHER | END 2019-08-27 04:15 | disposition EMS.NT | LOC: EMS 04:14 | PROVIDERS: ATTEND Surgery | DX: R53.1 Weakness (principal) ==

== ENCOUNTER 2019-08-27 10:35 | Outpatient (CLI) | payer MEDICARE, OTHER | END 2019-08-27 10:36 | disposition critical access hospital (66) | LOC: EMS 10:35 | PROVIDERS: ATTEND Surgery | DX: R53.1 Weakness (principal) | CPT/HCPCS: A0425; A0429 ==

== ENCOUNTER 2019-08-27 10:49 | Inpatient (IN) | payer MEDICARE, OTHER ==
--- NOTE | 2019-08-27 11:13 | ED Physician Documentation ---
History of Present Illness - Stated complaint Stated Complaint: GLF, WEAKNESS - Chief complaint Chief Complaint: Neuro - History obtained from History obtained from: Patient, EMS - History of Present Illness Timing: Enter time (0100), Last night - Additonal information Additional information: 88 y/o female With history of atrial fibrillation and hypertension and diabetes who is on Coumadin was attempting to get up to go to the bathroom last night when she really just did not have the strength to make her feet go in front of her. She and her tried for some time she eventually slumped to the ground and was not able to get back up. She did not injure herself. They eventually called 911 they helped the patient back into her bed and she refused transport. This morning she tried to get out of bed again and found that she was too weak to even sit up. She has not had diarrhea or vomiting she has had urinary symptoms and she has been on some antibiotic for treatment of urinary tract infection. She did not feel that her symptoms improved on the antibiotic. Review of Systems Constitutional: reports: Myalgias, Fatigue. denies: Fever, Chills Eyes: denies: Decreased vision Ears: denies: Ear pain Nose: denies: Rhinorrhea / runny nose, Congestion Throat: denies: Sore throat Cardiac: denies: Chest pain / pressure, Palpitations Respiratory: denies: Dyspnea, Cough GI: denies: Abdominal Pain, Nausea, Vomiting : reports: Dysuria, Frequency Skin: denies: Rash Musculoskeletal: denies: Neck pain, Back pain, Extremity pain Neurologic: reports: Generalized weakness. 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 HEENT: Cataracts, Other - Present Medications Home Medications: Ambulatory Orders Medication Instructions Recorded Confirmed Biotin 09/25/18 Cholecalciferol (Vitamin D3) 09/25/18 [Vitamin D3] [place]-3S/Dha/Epa/Fish Oil [Fish 09/25/18 Oil 1,200 mg Softgel] Potassium Chloride [Klor-Con 10] 09/25/18 Sotalol HCl [Betapace] 09/25/18 Terbinafine HCl [Lamisil At] 09/25/18 Timolol 0.5% Ophth Drops [Timoptic 09/25/18 0.5% Ophth Drops] Valsartan 09/25/18 glipiZIDE ER [Glucotrol Xl] 09/25/18 metFORMIN [Glucophage] 09/25/18 Doxazosin [Cardura] 08/27/19 Furosemide 08/27/19 Warfarin [Coumadin] 08/27/19 - Allergies Allergies/Adverse Reactions: Allergies Allergy/AdvReac Type Severity Reaction Status Date / Time No Known Drug Allergies Allergy Verified 08/27/19 10:58 - Social History Does the pt smoke?: No Smoking Status: Never smoker Does the pt drink ETOH?: No Does the pt have substance abuse?: No - Immunizations Immunizations are current?: Yes PD ED PE NORMAL - Vitals Vital signs reviewed: Yes (hypertensive ) - General General: Alert and oriented X 3, No acute distress, Well developed/nourished, Other (The patient is pleasant but weak enough that it is hard for her to sit up in bed without assistance.) - HEENT HEENT: Atraumatic, PERRL, EOMI - Neck Neck: Supple, no meningeal sign, No bony TTP - Cardiac Cardiac: RRR, No murmur - Respiratory Respiratory: No respiratory distress, Other (diminished breath sounds. ) - Abdomen Abdomen: Soft, Non tender - Derm Derm: Normal color, Warm and dry, No rash - Extremities Extremities: Other (There is pitting edema bilaterally with some erythema to the skin in patches. The patient believes this is normal for her. 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, No motor deficit, No sensory deficit, Normal speech Eye Opening: Spontaneous Motor: Obeys Commands Verbal: Oriented GCS Score: 15 - Psych Psych: Normal mood, Normal affect Results - Vitals Vitals: Vital Signs - 24 hr 08/27/19 08/27/19 08/27/19 10:53 11:02 11:36 Temperature 36.5 C Heart Rate 84 88 77 Respiratory 18 18 18 Rate Blood Pressure 155/67 H 180/79 H 146/84 H O2 Saturation 94 96 96 Oxygen O2 Source Room air - Labs Labs: Laboratory Tests 08/27/19 08/27/19 08/27/19 11:09 11:09 11:09 WBC 7.8 RBC 3.48 L Hgb 11.0 L Hct 33.1 L MCV 95.1 MCH 31.6 H MCHC 33.2 RDW 13.5 Plt Count 153 MPV 9.4 Neut # (Auto) 5.7 Lymph # (Auto) 0.9 L Harvey # (Auto) 1.2 H Eos # (Auto) 0.0 Baso # (Auto) 0.0 Absolute Nucleated RBC 0.00 Nucleated RBC % 0.0 PT 24.2 H INR 2.2 H Sodium 135 Potassium 3.6 Chloride 96 L Carbon Dioxide 31 Anion Gap 8.0 BUN 23 H Creatinine 0.8 Estimated GFR (MDRD) 68 L Glucose 194 H Lactic Acid Calcium 9.2 Total Bilirubin 0.4 AST 20 ALT 10 Alkaline Phosphatase 48 Total Protein 6.3 L Albumin 3.2 Globulin 3.1 Albumin/Globulin Ratio 1.0 Lipase 29 Urine Color Urine Clarity Urine pH Ur Specific [place] Urine Protein Urine Glucose (UA) Urine Ketones Urine Occult Blood Urine Nitrite Urine Bilirubin Urine Urobilinogen Ur Leukocyte Esterase Urine RBC Urine WBC Ur Squamous Epith Cells Urine Bacteria Ur Microscopic Review Urine Culture Comments 08/27/19 08/27/19 11:09 11:35 WBC RBC Hgb Hct MCV MCH MCHC RDW Plt Count MPV Neut # (Auto) Lymph # (Auto) Harvey # (Auto) Eos # (Auto) Baso # (Auto) Absolute Nucleated RBC Nucleated RBC % PT INR Sodium Potassium Chloride Carbon Dioxide Anion Gap BUN Creatinine Estimated GFR (MDRD) Glucose Lactic Acid 1.3 Calcium Total Bilirubin AST ALT Alkaline Phosphatase Total Protein Albumin Globulin Albumin/Globulin Ratio Lipase Urine Color YELLOW Urine Clarity HAZY Urine pH 7.0 Ur Specific [place] 1.010 Urine Protein 30 H Urine Glucose (UA) NEGATIVE Urine Ketones NEGATIVE Urine Occult Blood MODERATE H Urine Nitrite NEGATIVE Urine Bilirubin NEGATIVE Urine Urobilinogen 0.2 (NORMAL) Ur Leukocyte Esterase LARGE H Urine RBC 6-10 H Urine WBC >25 H Ur Squamous Epith Cells NONE SEEN Urine Bacteria Moderate H Ur Microscopic Review INDICATED Urine Culture Comments INDICATED - Rads (name of study) chest Radiology: Prelim report reviewed (Impression: No active cardiopulmonary disease.), EMP read indepedently, See rad report Procedures - IVC sono (time) 1120 Bedside IVC sono: IVC measures (cm) (1.7), Euvolemia PD MEDICAL DECISION MAKING - ED course Complexity details: reviewed old records, reviewed results, re-evaluated patient, considered differential, d/w patient, d/w family ED course: 88-year-old female with atrial fibrillation on Coumadin history of diabetes and hypertension has a urinary tract infection and is extremely weak. She is at risk for fall in her home. She is here this morning with her of 71 years who states that he was unable to get her up off the floor last night. She is administered Rocephin intravenously. Her volume status appears normal on interrogation the inferior vena cava this morning. I do not feel hydration on this patient will allow her to regain her strength.I suspect she will need treatment of the urinary tract infection for more than 1 day Departure - Departure Disposition: ED Place in Observation Clinical Impression: Weakness generalized Urinary tract infection Qualifiers: Urinary tract infection type: acute cystitis Hematuria presence: without hematuria Qualified Code(s): N30.00 - Acute cystitis without hematuria
[2019-08-27 11:16] LABS: BASOPHILS % (AUTO) 0.3 %; LYMPHOCYTES # (AUTO) 0.9 10^3/uL (1.5-3.5); LYMPHOCYTES % (AUTO) 11.8 %; MEAN CORPUSCULAR HEMOGLOBIN 31.6 pg (27.0-31.0); MEAN CORPUSCULAR HGB CONC 33.2 g/dL (32.0-36.0); MEAN CORPUSCULAR VOLUME 95.1 fL (81.0-99.0); MEAN PLATELET VOLUME 9.4 fL (7.9-10.8); MONOCYTES # (AUTO) 1.2 10^3/uL (0.0-1.0); NEUTROPHILS # (AUTO) 5.7 10^3/uL (1.5-6.6); NEUTROPHILS % (AUTO) 72.5 %; PLT - PLATELET COUNT 153 10^3/uL (130-450); RED BLOOD COUNT 3.48 10^6/uL (4.20-5.40); RED CELL DISTRIBUTION WIDTH 13.5 % (12.0-15.0); WHITE BLOOD COUNT 7.8 x10^3/uL (4.8-10.8)
[2019-08-27 11:28] LABS: ALBUMIN 3.2 g/dL (3.2-5.5); BILIRUBIN,TOTAL 0.4 mg/dL (0.2-1.0); CALCIUM 9.2 mg/dL (8.5-10.3); CREATININE 0.8 mg/dL (0.4-1.0); TOTAL PROTEIN 6.3 g/dL (6.7-8.2)
[2019-08-27 11:29] LABS: INR 2.2 (0.8-1.2); PT - PROTHROMBIN TIME 24.2 secs (9.9-12.6)
[2019-08-27 11:51] LABS: BILIRUBIN,URINE NEGATIVE (NEGATIVE); GLUCOSE, URINE (UA) NEGATIVE (NEGATIVE); KETONES,URINE (UA) NEGATIVE (NEGATIVE); LEUKOCYTE ESTERASE, URINE LARGE (NEGATIVE); NITRITE,URINE NEGATIVE (NEGATIVE); OCCULT BLOOD,URINE MODERATE (NEGATIVE); PROTEIN,URINE 30 mg/dL (NEGATIVE); UROBILINOGEN,URINE 0.2 (NORMAL) E.U./dL (NORMAL)
[2019-08-27 11:52] LABS: CLARITY,URINE HAZY (CLEAR)
[2019-08-27 12:04] LABS: BACTERIA,URINE Moderate /HPF (None Seen); SQUAMOUS EPITHELIAL CELL,UR NONE SEEN (<= Few)
--- NOTE | 2019-08-27 12:10 | XRAY Report ---
Reason: weakness Procedure Date: 08/27/2019 Accession Number: [id number] / [id number] Procedure: XR - Chest 1 View X-Ray CPT Code: 12048 FULL RESULT: EXAM: CHEST RADIOGRAPHY EXAM DATE: 08/27/2019 11:37 AM. CLINICAL HISTORY: Weakness. COMPARISON: CHEST 1 VIEW 07/14/2019 3:43 PM. TECHNIQUE: 1 view. FINDINGS: Lungs/Pleura: Linear atelectasis left lung base.. No pleural effusion. No pneumothorax. Mediastinum: Heart size normal. Ectatic aorta. Other: DJD spine IMPRESSION: No active cardiopulmonary disease RADIA
[2019-08-27] MEDS ORDERED: cefTRIAXone 1 GM in SODIUM CHLORIDE 0.9% MINIBAG 100 ML IV STA (12:12)
[2019-08-27] MEDS ORDERED: ZOLPIDEM 5 MG TABLET PO PRN (12:49)
[2019-08-27] MEDS ORDERED: ACETAMINOPHEN 325 MG TABLET PO PRN (12:49)
[2019-08-27] MEDS ORDERED: SODIUM CHLORIDE FLUSH 0.9% 10 ML SYRINGE IVP PRN (12:49)
[2019-08-27] MEDS ORDERED: ONDANSETRON 4 MG/2 ML VIAL IVP PRN (12:49)
[2019-08-27] MEDS ORDERED: ACETAMINOPHEN 325 MG TABLET PO STA (12:57)
[2019-08-27 13:25] LABS: HEMOGLOBIN A1C 0.61 g/dL; HEMOGLOBIN A1C % 7.2 % (4.6-6.2)
[2019-08-27] MEDS: SODIUM CHLORIDE 0.9% 1,000 ML IV SCH (13:59)
[2019-08-27] MEDS ORDERED: WARFARIN 2.5 MG TABLET PO SCH (14:00)
--- NOTE | 2019-08-27 15:14 | HISTORY & PHYSICAL EXAMINATION ---
Chief Complaint - Chief Complaint Chief Complaint: weakness History of Present Illness - History of Present Illness HPI Comment/Other: Ms. Almendarez is a88 y/o female With history of atrial fibrillation on Coumadin, HLD, hypertension, incontinence, osteoarthritis, and diabetes who preset ER complain of generalized weakness. Pt report she usually walk with her walker. but she report she is very difficult to get up to go to the bathroom last night because she really did not have the strength to make her feet move forward. her tried help let her walk, but she eventually slumped to the ground. She report she did not injure herself. They eventually called 911 but she initially refused transport to the hospital. This morning she tried to get out of bed again but she found that she was still too weak to even sit up. Finally pt agreed go to ER. pt denies fever, chill, dysuria, hematuria, abdominal pain, diarrhea or vomiting, nausea. UA reveals positive UTI with pyuria. CXR reveals unremarkable. Lab was unremarkable except elevated glucose level. Pt was afebrile, hemodynamically stable now. pt is admitted in observation for further evaluation and treatment. History - Past Medical History Cardiovascular: reports: Hypertension, High cholesterol, Atrial fibrillation Endocrine/Autoimmune: reports: Type 2 diabetes : reports: Incontinence Musculoskeletal: reports: Osteoarthritis - Past Surgical History General: reports: Cholecystectomy Ortho: reports: Spine surgery /[employer] EM[employer]OY[employer]: reports: Hysterectomy HEENT: reports: Cataracts, Other - Family & Social History Family History: Mother: Diabetes, Type 2, Father: CAD Family History Comment/Other: pt report his father from heart attack, her mother had DM history, at 102 yrs old. pt had four children. pt is living with her at [facility]. Social History Notes: pt denies hx of cigarette smoking, alcohol and drug issue. - POLST Patient has POLST: No Meds/Allgy - Home Medications Home Medications: Ambulatory Orders Medication Instructions Recorded Confirmed Biotin 1 cap PO DAILY 09/25/18 08/27/19 Cholecalciferol (Vitamin D3) 2,000 unit PO DAILY 09/25/18 08/27/19 [Vitamin D3] [place]-3S/Dha/Epa/Fish Oil [Fish 1 cap PO DAILY 09/25/18 08/27/19 Oil 1,200 mg Softgel] Sotalol HCl [Betapace] 80 mg PO BID 09/25/18 08/27/19 Timolol 0.5% Ophth Drops [Timoptic 1 drops LEFTEYE BID 09/25/18 08/27/19 0.5% Ophth Drops] Valsartan 320 mg PO DAILY 09/25/18 08/27/19 glipiZIDE ER [Glucotrol Xl] 2.5 mg PO DAILY 09/25/18 08/27/19 metFORMIN [Glucophage] 500 mg PO TIDWM 09/25/18 08/27/19 Atorvastatin Calcium 20 mg PO QPM 08/27/19 08/27/19 Doxazosin [Cardura] 4 mg PO QPM 08/27/19 08/27/19 Doxazosin [Cardura] 4 mg PO QPM 08/27/19 08/27/19 Furosemide 10 mg PO DAILY 08/27/19 08/27/19 Warfarin [Coumadin] 5 mg PO DAILY 08/27/19 08/27/19 - Allergies Allergies/Adverse Reactions: Allergies Allergy/AdvReac Type Severity Reaction Status Date / Time No Known Drug Allergies Allergy Verified 08/27/19 10:58 Review of Systems - Constitutional Constitutional: reports: Weakness. denies: Fatigue, Fever, Chills, Malaise, Poor appetite, Diaphoresis, Night sweats - Eyes Eyes: denies: Pain, Irritation, Amaurosis, Blurred vision, Spots in vision, Field loss, Vision loss, Dipolpia - Ears, Nose & Throat Ears, Nose & Throat: denies: Ear pain, Hearing loss, Hearing aids, Tinnitus, Vertigo, Nasal pain, Nasal discharge, Nosebleeds, Nasal obstruction, Nasal congestion, Postnasal drainage, Dentures, Sore throat, Hoarseness, Mouth lesions, Bleeding gums - Cardiovascular Cariovascular: denies: Palpitations, Chest pain, Edema, Lightheadedness, Syncope, Exertional dyspnea, Decr. exercise tolerance - Respiratory Respiratory: denies: Cough, Sputum production, Wheezing, Snoring, Hemoptysis, Orthopnea, SOB at rest, SOB with exertion - Gastrointestinal Gastrointestinal: denies: Abdominal pain, Abdominal distention, Constipation, Diarrhea, Change in bowel habits, Rectal bleeding, Black stools, Bloody stools, Nausea, Vomiting, Bile emesis, [place] blood emesis, Coffee grounds emesis, Reflux/heartburn - Genitourinary Genitourinary: reports: Incontinence. denies: Dysuria, Frequency, Urgency, Hematuria, Flank pain, Nocturia, Urethral discharge - Musculoskeletal Musculoskeletal: denies: Muscle pain, Back pain, Muscle aches, Stiffness, Limited range of motion, Muscle weakness, Gout, Joint pain - Integumentary Integumentary: denies: Rash, Pruritis, Lesions, Dryness, Lumps, Acne, Pigment changes, Nail changes - Neurological Neurological: reports: General weakness. denies: Focal weakness, Headache, Dizziness, Numbness, Memory problems, Pre-existing deficit, Abnormal gait, Seizures, Incoordination, Slurred speech - Psychiatric Psychiatric: denies: Depression, Anxiety, Suicidal, Delusions, Hallucinations, Homicidal - Endocrine Endocrine: denies: Polyuria, Polydypsia, Polyphagia, Intolerance to cold - Hematologic/Lymphatic Hematologic/Lymphatic: denies: Anemia, Bruising, Petechiae, Blood clots, Lympha denopathy, Bleeding tendencies Exam - Vital Signs Reviewed Vital Signs: Yes Vital Signs: Vital Signs x48h Temp Pulse Pulse Resp BP BP Pulse Ox 08/27/19 13:52 37 C 72 16 146/70 H 95 08/27/19 13:05 75 18 154/58 H 97 08/27/19 11:36 77 18 146/84 H 96 08/27/19 11:02 88 18 180/79 H 96 08/27/19 10:53 36.5 C 84 18 155/67 H 94 - Physical Exam General Appearance: positive: No acute distress, Alert. negative: Lethargic Eyes Bilateral: positive: Normal inspection, PERRL, No lid inflammation, Conjunctivae nml ENT: positive: ENT inspection nml, Pharynx nml. negative: Purulent nasal drainage, Pharyngeal erythema, Oral lesions Neck: positive: Nml inspection, Thyroid nml, No JVD, Trachea midline. negative: Thyromegaly, Lymphadenopathy (R), Lymphadenopathy (L), Stiff neck, Swelling/bruising, Tracheal deviation Respiratory: positive: Chest non-tender, No respiratory distress, Breath sounds nml. negative: Wheezes, Rales, Rhonchi Cardiovascular: positive: Regular rate & rhythm, No murmur, No gallop. negative: Irregularly irregular, Extrasystoles, Tachycardia, Bradycardia, JVD present, Systolic murmur, Diastolic murmur Peripheral Pulses: positive: 2+ Abdomen: positive: Non-tender, No organomegaly, Nml bowel sounds, No distention. negative: Tenderness, Guarding, Rebound Back: positive: Nml inspection. negative: CVA tenderness (R), CVA tenderness (L) Skin: positive: Color nml, No rash, Warm, Dry. negative: Cyanosis, Diaphoresis, Pallor Extremities: positive: Non-tender, Full ROM, Nml appearance. negative: Calf tenderness, Joint swelling, Laurel's sign/cords Neurologic/Psychiatric: positive: Oriented x3, Sensation nml, Mood/affect nml. negative: Weakness, Sensory loss, Facial droop, Slurred/abnml speech Sepsis Event Note (H) - Evaluation Current Stage of Sepsis: Ruled out Conclusion/Plan - Problem List (1) Urinary tract infection Conclusion/Plan: UA analysis reveals UTI with pyuria. pt denies dysuria and hematuria. plan:Treat with Rocephin UA culture and sensitivity study are pending now, will followup Qualifiers: Urinary tract infection type: acute cystitis Hematuria presence: without hematuria Qualified Code(s): N30.00 - Acute cystitis without hematuria (2) Weakness generalized Conclusion/Plan: pt present acute generalized weakness. it is likely caused by her UTI infection plan: treat underline infection consult with PT/OT fall precaution (3) Diabetes Conclusion/Plan: pt did not have insulin at her home meds, she took meds to control. glucose was 190 Plan: start on slide scale for insulin ACHS to check glucose level check A1C (4) Chronic a-fib Conclusion/Plan: stable HR. pt had coumadin. INR is 2.2 today. plan: continue home Sotalol continue home Coumadin daily monitor PT/INR tele and vital monitor (5) HTN (hypertension) Conclusion/Plan: stable, reconcile home meds Losartan and Sotalol vital monitor (6) HLD (hyperlipidemia) Conclusion/Plan: stable, reconcile home Lipitor (7) Do not intubate, cardiopulmonary resuscitation (CPR)-only code status Conclusion/Plan: pt clearly request DNR. pt is alert and oriented plus three today - Lab Results Fish Bones: 08/27/19 11:09 08/27/19 11:09 Core Measures - Anticipated LOS I expect patient to be DC'd or transferred within 96 hours.: Yes - DVT/VTE - Prophylaxis VTE/DVT Device ordered at admit?: Yes VTE/DVT Prophylaxis med ordered at admit?: Yes
[2019-08-27] MEDS: INSULIN ASPART 300 UNIT/3 ML PEN SUBQ SCH ×2 (17:52→21:40)
[2019-08-27] MEDS: SODIUM CHLORIDE FLUSH 0.9% 10 ML SYRINGE IVP SCH (17:53)
[2019-08-27] MEDS: ATORVASTATIN 40 MG TABLET PO SCH (20:53)
[2019-08-27] MEDS: SOTALOL 80 MG TABLET PO SCH (20:54)
[2019-08-27] MEDS: TIMOLOL 0.5% OPHTH DROPS LEFTEYE SCH (20:54)
[2019-08-27] MEDS: DOXAZOSIN 4 MG TABLET PO SCH (20:54)
[2019-08-28] MEDS: SODIUM CHLORIDE FLUSH 0.9% 10 ML SYRINGE IVP SCH ×3 (00:42→17:03)
[2019-08-28] MEDS: SODIUM CHLORIDE 0.9% 1,000 ML IV SCH (01:54)
[2019-08-28 05:26] LABS: BASOPHILS % (AUTO) 0.2 %; EOSINOPHILS % (AUTO) 0.3 %; HGB - HEMOGLOBIN 9.8 g/dL (12.0-16.0); LYMPHOCYTES % (AUTO) 15.8 %; MEAN CORPUSCULAR HEMOGLOBIN 31.1 pg (27.0-31.0); MEAN CORPUSCULAR HGB CONC 32.9 g/dL (32.0-36.0); MEAN CORPUSCULAR VOLUME 94.6 fL (81.0-99.0); MEAN PLATELET VOLUME 9.6 fL (7.9-10.8); MONOCYTES % (AUTO) 14.5 %; NEUTROPHILS % (AUTO) 68.9 %; PLT - PLATELET COUNT 135 10^3/uL (130-450); RED BLOOD COUNT 3.15 10^6/uL (4.20-5.40); RED CELL DISTRIBUTION WIDTH 13.4 % (12.0-15.0); WHITE BLOOD COUNT 6.6 x10^3/uL (4.8-10.8)
[2019-08-28 05:28] LABS: INR 1.9 (0.8-1.2); PT - PROTHROMBIN TIME 21.1 secs (9.9-12.6)
[2019-08-28 05:30] LABS: CALCIUM 8.3 mg/dL (8.5-10.3); CREATININE 0.8 mg/dL (0.4-1.0); MAGNESIUM 1.2 mg/dL (1.7-2.8)
[2019-08-28 05:34] LABS: ABNORMAL LYMPHS % (MANUAL) 0 %
[2019-08-28 05:56] LABS: BAND NEUTROPHILS % (MANUAL) 25 %; DIFFERENTIAL COMMENT MANUAL DIFFERENTIAL; LYMPHOCYTES # (MANUAL) 0.9 10^3/uL (1.5-3.5); LYMPHOCYTES % (MANUAL) 13 %; MONOCYTES # (MANUAL) 0.6 10^3/uL (0.0-1.0); PLATELET ESTIMATE, MANUAL NORMAL (130-450,000) (NORMAL); RBC MORPHOLOGY (MULTIPLE) NORMAL APPEARANCE (NORMAL)
[2019-08-28] MEDS ORDERED: POTASSIUM CHLORIDE 20 MEQ TABLET PO ONE (06:39)
[2019-08-28] MEDS ORDERED: MAGNESIUM SULFATE 2 GRAM 2 GM/50 ML BAG IV ONE (06:40)
[2019-08-28] MEDS: LOSARTAN 50 MG TABLET PO SCH (08:58)
[2019-08-28] MEDS: WARFARIN 5 MG TABLET PO SCH (08:58)
[2019-08-28] MEDS: FAMOTIDINE 20 MG TABLET PO SCH (08:58)
[2019-08-28] MEDS: SOTALOL 80 MG TABLET PO SCH ×2 (08:58→20:02)
[2019-08-28] MEDS: cefTRIAXone 1 GM in SODIUM CHLORIDE 0.9% MINIBAG 100 ML IV SCH (08:59)
[2019-08-28] MEDS ORDERED: cefTRIAXone 1 GM VIAL IV SCH (09:00)
[2019-08-28] MEDS: INSULIN ASPART 300 UNIT/3 ML PEN SUBQ SCH ×5 (09:00→23:00)
[2019-08-28] MEDS: POLYETHYLENE GLYCOL 3350 17 GM PACKET PO SCH (09:01)
[2019-08-28] MEDS: TIMOLOL 0.5% OPHTH DROPS LEFTEYE SCH ×2 (09:09→20:06)
--- NOTE | 2019-08-28 15:34 | PROVIDER PROGRESS NOTE ---
Subjective - Prog Note Date Prog Note Date: 08/28/19 - Subjective Pt reports feeling: Improved Subjective: pt's UA culture and sensitive study is still pending. pt report her strength is slight better but she report she is still weak to walk. pt denies chest pain, fever, chill, shortness of breath. Current Medications - Current Medications Current Medications: Active Medications Acetaminophen (Tylenol) 650 mg PO Q4HR PRN PRN Reason: Pain 1 to 4 Atorvastatin Calcium (Lipitor) 20 mg PO QPM [facility] Last Admin: 08/27/19 20:53 Dose: 20 mg Doxazosin Mesylate (Cardura) 4 mg PO QPM [facility] Last Admin: 08/27/19 20:54 Dose: 4 mg Famotidine (Pepcid) 20 mg PO DAILY [facility] Last Admin: 08/28/19 08:58 Dose: 20 mg Ceftriaxone Sodium 1 gm/ (Sodium Chloride) 100 mls @ 200 mls/hr IV DAILY [facility] Last Infusion: 08/28/19 10:13 Dose: Infused Insulin Aspart (Novolog) 2 - 10 unit SUBQ 0800,1200,1700,2100 [facility]; Protocol Last Admin: 08/28/19 17:03 Dose: 6 unit Losartan Potassium (Cozaar) 50 mg PO DAILY [facility] Last Admin: 08/28/19 08:58 Dose: 50 mg Ondansetron HCl (Zofran Inj) 4 mg IVP Q6HR PRN PRN Reason: Nausea / Vomiting Polyethylene Glycol (Miralax) 17 gm PO DAILY [facility] Last Admin: 08/28/19 09:01 Dose: 17 gm Sodium Chloride (Normal Saline Flush 0.9%) 10 ml IVP PRN PRN PRN Reason: NEEDED PER PROVIDER ORDERS Sodium Chloride (Normal Saline Flush 0.9%) 10 ml IVP 0100,0900,1700 [facility] Last Admin: 08/28/19 17:03 Dose: 10 ml Sotalol HCl (Betapace) 80 mg PO BID [facility] Last Admin: 08/28/19 08:58 Dose: 80 mg Timolol Maleate (Timoptic 0.5% Ophth Drops) 1 drops LEFTEYE BID [facility] Last Admin: 08/28/19 09:09 Dose: 1 drops Warfarin Sodium (Coumadin) 5 mg PO DAILY [facility] Last Admin: 08/28/19 08:58 Dose: 5 mg Zolpidem Tartrate (Ambien) 5 mg PO QPM PRN PRN Reason: Insomnia Biotin 1 cap PO DAILY 09/25/18 Cholecalciferol (Vitamin D3) [Vitamin D3] 2,000 unit PO DAILY 09/25/18 [place]-3S/Dha/Epa/Fish Oil [Fish Oil 1,200 mg Softgel] 1 cap PO DAILY 09/25/18 Sotalol HCl [Betapace] 80 mg PO BID 09/25/18 Timolol 0.5% Ophth Drops [Timoptic 0.5% Ophth Drops] 1 drops LEFTEYE BID 09/25/18 Valsartan 320 mg PO DAILY 09/25/18 glipiZIDE ER [Glucotrol Xl] 2.5 mg PO DAILY 09/25/18 metFORMIN [Glucophage] 500 mg PO TIDWM 09/25/18 Atorvastatin Calcium 20 mg PO QPM 08/27/19 Doxazosin [Cardura] 4 mg PO QPM 08/27/19 Doxazosin [Cardura] 4 mg PO QPM 08/27/19 Furosemide 10 mg PO DAILY 08/27/19 Warfarin [Coumadin] 5 mg PO DAILY 08/27/19 Objective - Vital Signs/Intake & Output Reviewed Vital Signs: Yes Vital Signs: Vital Signs x48h Temp Pulse Pulse Pulse Resp BP BP 08/28/19 15:03 36.5 C 61 18 156/57 H 08/28/19 11:23 36.9 C 57 L 16 146/65 H 08/28/19 10:16 68 62 156/56 H 08/28/19 07:41 37 C 65 14 142/52 H BP Pulse Ox 08/28/19 15:03 97 08/28/19 11:23 97 08/28/19 10:16 155/62 H 08/28/19 07:41 90 L Intake & Output: Intake & Output 08/25/19 08/26/19 08/27/19 08/28/19 23:59 23:59 23:59 23:59 Intake Total 350 2862.658 Output Total 1200 Balance 350 1662.658 - Objective General Appearance: positive: No acute distress, Alert Eyes Bilateral: positive: Normal inspection, PERRL, No lid inflammation, Conjunctivae nml ENT: positive: ENT inspection nml, Pharynx nml, No signs of dehydration. negative: Purulent nasal drainage, Pharyngeal erythema, Oral lesions Neck: positive: Nml inspection, Thyroid nml, No JVD, Trachea midline. negative: Thyromegaly, Lymphadenopathy (R), Lymphadenopathy (L), Stiff neck, Swelling/bruising, Tracheal deviation Respiratory: positive: Chest non-tender, No respiratory distress, Breath sounds nml. negative: Wheezes, Rales, Rhonchi Cardiovascular: positive: Regular rate & rhythm, No murmur, No gallop. negative: Irregularly irregular, Extrasystoles, Tachycardia, Bradycardia, JVD present, Systolic murmur, Diastolic murmur Peripheral Pulses: 2+ Radial (R), 2+ Radial (L), 2+ Dorsalis pedis (R), 2+ Dorsalis pedis (L) Abdomen: positive: Non-tender, No organomegaly, Nml bowel sounds, No distention. negative: Tenderness, Guarding, Rebound Back: positive: Nml inspection. negative: CVA tenderness (R), CVA tenderness (L) Skin: positive: Color nml, No rash, Warm, Dry. negative: Cyanosis, Diaphoresis, Pallor Extremities: positive: Non-tender, Nml appearance. negative: Calf tenderness, Joint swelling, Laurel's sign/cords Neurologic/Psychiatric: positive: Sensation nml, Mood/affect nml. negative: Weakness, Sensory loss, Facial droop, Slurred/abnml speech, Depressed mood/affect - Lab Results Fish Bones: 08/28/19 05:00 08/28/19 05:00 Other Labs: Lab Results x24hrs 08/28/19 08/28/19 08/28/19 Range/Units 05:00 05:00 05:00 WBC 6.6 (4.8-10.8) x10^3/uL RBC 3.15 L (4.20-5.40) 10^6/uL Hgb 9.8 L (12.0-16.0) g/dL Hct 29.8 L (37.0-47.0) % MCV 94.6 (81.0-99.0) fL MCH 31.1 H (27.0-31.0) pg MCHC 32.9 (32.0-36.0) g/dL RDW 13.4 (12.0-15.0) % Plt Count 135 (130-450) 10^3/uL MPV 9.6 (7.9-10.8) fL Neut # (Auto) Not Reportable Lymph # (Auto) Not Reportable [place] # (Auto) Not Reportable Eos # (Auto) Not Reportable Baso # (Auto) Not Reportable Absolute Nucleated RBC Not Reportable Total Counted 100 Band Neuts % (Manual) 25 H (0 - 10) % Abnorm Lymph % (Manual) 0 % Nucleated RBC % Not Reportable Neutrophils # (Manual) 5.1 (1.5-6.6) 10^3/uL Lymphocytes # (Manual) 0.9 L (1.5-3.5) 10^3/uL Monocytes # (Manual) 0.6 (0.0-1.0) 10^3/uL Eosinophils # (Manual) 0.0 (0-0.7) 10^3/uL Basophils # (Manual) 0.0 (0-0.1) 10^3/uL Differential Comment MANUAL DIFFERENTIAL Platelet Estimate NORMAL (130-450,000) (NORMAL) RBC Morph Micro Appear NORMAL APPEARANCE (NORMAL) PT 21.1 H (9.9-12.6) secs INR 1.9 H (0.8-1.2) Sodium 136 (135-145) mmol/L Potassium 3.2 L (3.5-5.0) mmol/L Chloride 98 L (101-111) mmol/L Carbon Dioxide 29 (21-32) mmol/L Anion Gap 9.0 (6-13) BUN 23 H (6-20) mg/dL Creatinine 0.8 (0.4-1.0) mg/dL Estimated GFR (MDRD) 68 L (>89) Glucose 149 H (70-100) mg/dL Calcium 8.3 L (8.5-10.3) mg/dL Magnesium 1.2 L (1.7-2.8) mg/dL ABX Reporting Has patient been on IV antibiotics over the past 48 hours?: Yes Sepsis Event Note (H) - Evaluation Current Stage of Sepsis: Ruled out Assessment/Plan - Problem List (1) Urinary tract infection Impression: 08/28 UA reveals positive Ecoli, sensitivity study is still pending continue treat with Rocephin UA analysis reveals UTI with pyuria. pt denies dysuria and hematuria. plan:Treat with Rocephin UA culture and sensitivity study are pending now, will followup (2) Weakness generalized Conclusion/Plan: 08/28 pt was treated evaluation with PT/OT continue PT/OT pt present acute generalized weakness. it is likely caused by her UTI infection plan: treat underline infection consult with PT/OT fall precaution (3) Diabetes Conclusion/Plan: 08/28, A1C is 7.2, continue slide scale, ACHS, and hypoglycemia protocol pt did not have insulin at her home meds, she took meds to control. glucose was 190 Plan: start on slide scale for insulin ACHS to check glucose level check A1C (4) Chronic a-fib Conclusion/Plan: stable HR. pt had coumadin. INR is 2.2 today. plan: continue home Sotalol continue home Coumadin daily monitor PT/INR tele and vital monitor (5) HTN (hypertension) Conclusion/Plan: stable, reconcile home meds Losartan and Sotalol vital monitor (6) HLD (hyperlipidemia) Conclusion/Plan: stable, reconcile home Lipitor Qualifiers: Urinary tract infection type: acute cystitis Hematuria presence: without hematuria Qualified Code(s): N30.00 - Acute cystitis without hematuria
[2019-08-28] MEDS: DOXAZOSIN 4 MG TABLET PO SCH (20:02)
[2019-08-28] MEDS: ATORVASTATIN 40 MG TABLET PO SCH (20:03)
[2019-08-29] MEDS: SODIUM CHLORIDE FLUSH 0.9% 10 ML SYRINGE IVP SCH ×3 (00:27→17:22)
[2019-08-29 06:23] LABS: BASOPHILS % (AUTO) 0.5 %; EOSINOPHILS # (AUTO) 0.1 10^3/uL (0.0-0.7); HGB - HEMOGLOBIN 9.6 g/dL (12.0-16.0); LYMPHOCYTES # (AUTO) 0.9 10^3/uL (1.5-3.5); LYMPHOCYTES % (AUTO) 14.4 %; MEAN CORPUSCULAR HEMOGLOBIN 30.3 pg (27.0-31.0); MEAN CORPUSCULAR HGB CONC 31.8 g/dL (32.0-36.0); MEAN CORPUSCULAR VOLUME 95.3 fL (81.0-99.0); MEAN PLATELET VOLUME 9.6 fL (7.9-10.8); MONOCYTES # (AUTO) 0.8 10^3/uL (0.0-1.0); MONOCYTES % (AUTO) 12.8 %; NEUTROPHILS # (AUTO) 4.5 10^3/uL (1.5-6.6); NEUTROPHILS % (AUTO) 69.7 %; PLT - PLATELET COUNT 135 10^3/uL (130-450); RED BLOOD COUNT 3.17 10^6/uL (4.20-5.40); RED CELL DISTRIBUTION WIDTH 13.5 % (12.0-15.0); WHITE BLOOD COUNT 6.5 x10^3/uL (4.8-10.8)
[2019-08-29 06:28] LABS: INR 1.8 (0.8-1.2); PT - PROTHROMBIN TIME 19.6 secs (9.9-12.6)
[2019-08-29 06:33] LABS: CALCIUM 8.5 mg/dL (8.5-10.3); CREATININE 0.8 mg/dL (0.4-1.0)
[2019-08-29] MEDS: LOSARTAN 50 MG TABLET PO SCH (08:59)
[2019-08-29] MEDS: cefTRIAXone 1 GM in SODIUM CHLORIDE 0.9% MINIBAG 100 ML IV SCH (08:59)
[2019-08-29] MEDS: FAMOTIDINE 20 MG TABLET PO SCH (08:59)
[2019-08-29] MEDS: SOTALOL 80 MG TABLET PO SCH ×2 (08:59→21:50)
[2019-08-29] MEDS: WARFARIN 5 MG TABLET PO SCH (08:59)
[2019-08-29] MEDS: TIMOLOL 0.5% OPHTH DROPS LEFTEYE SCH ×2 (09:00→21:53)
[2019-08-29] MEDS: SODIUM CHLORIDE 0.9% 1,000 ML IV SCH ×2 (09:00→22:29)
[2019-08-29] MEDS: POLYETHYLENE GLYCOL 3350 17 GM PACKET PO SCH (09:00)
[2019-08-29] MEDS: INSULIN ASPART 300 UNIT/3 ML PEN SUBQ SCH ×4 (10:03→21:52)
[2019-08-29] MEDS: TAMSULOSIN 0.4 MG CAPSULE PO SCH (11:15)
--- NOTE | 2019-08-29 15:25 | PROVIDER PROGRESS NOTE ---
Subjective - Prog Note Date Prog Note Date: 08/29/19 - Subjective Pt reports feeling: Improved Subjective: pt report she feel slight improvement of her strength. she denies fever, chill, chest pain, cough and shortness of breath. she report she did not urine for quite time. Nurse did bladder scan pt has around 200 ml in her bladder, nurse report pt did urinate on yesterday, and straight cath today. I&O reveals pt had 1025ml urine as far today. blood culture reveals pt had bacteremia with positive for Ecoli. Current Medications - Current Medications Current Medications: Active Medications Acetaminophen (Tylenol) 650 mg PO Q4HR PRN PRN Reason: Pain 1 to 4 Atorvastatin Calcium (Lipitor) 20 mg PO QPM [facility] Last Admin: 08/28/19 20:03 Dose: 20 mg Doxazosin Mesylate (Cardura) 4 mg PO QPM [facility] Last Admin: 08/28/19 20:02 Dose: 4 mg Famotidine (Pepcid) 20 mg PO DAILY [facility] Last Admin: 08/29/19 08:59 Dose: 20 mg Ceftriaxone Sodium 1 gm/ (Sodium Chloride) 100 mls @ 200 mls/hr IV DAILY [facility] Last Infusion: 08/29/19 10:03 Dose: Infused Sodium Chloride (Normal Saline 0.9%) 1,000 mls @ 83.333 mls/hr IV .Q12H [facility] Last Admin: 08/29/19 09:00 Dose: 83.333 mls/hr Insulin Aspart (Novolog) 3 - 11 unit SUBQ 0800,1200,1700,2100 [facility]; Protocol Last Admin: 08/29/19 12:58 Dose: 7 unit Insulin Glargine (Lantus Solostar) 5 unit SUBQ QPM [facility] Losartan Potassium (Cozaar) 50 mg PO DAILY [facility] Last Admin: 08/29/19 08:59 Dose: 50 mg Ondansetron HCl (Zofran Inj) 4 mg IVP Q6HR PRN PRN Reason: Nausea / Vomiting Polyethylene Glycol (Miralax) 17 gm PO DAILY [facility] Last Admin: 08/29/19 09:00 Dose: 17 gm Sodium Chloride (Normal Saline Flush 0.9%) 10 ml IVP PRN PRN PRN Reason: NEEDED PER PROVIDER ORDERS Sodium Chloride (Normal Saline Flush 0.9%) 10 ml IVP 0100,0900,1700 [facility] Last Admin: 08/29/19 09:00 Dose: 10 ml Sotalol HCl (Betapace) 80 mg PO BID [facility] Last Admin: 08/29/19 08:59 Dose: 80 mg Tamsulosin HCl (Flomax) 0.4 mg PO DAILY [facility] Last Admin: 08/29/19 11:15 Dose: 0.4 mg Timolol Maleate (Timoptic 0.5% Ophth Drops) 1 drops LEFTEYE BID [facility] Last Admin: 08/29/19 09:00 Dose: 1 drops Warfarin Sodium (Coumadin) 5 mg PO DAILY [facility] Last Admin: 08/29/19 08:59 Dose: 5 mg Zolpidem Tartrate (Ambien) 5 mg PO QPM PRN PRN Reason: Insomnia Biotin 1 cap PO DAILY 09/25/18 Cholecalciferol (Vitamin D3) [Vitamin D3] 2,000 unit PO DAILY 09/25/18 [place]-3S/Dha/Epa/Fish Oil [Fish Oil 1,200 mg Softgel] 1 cap PO DAILY 09/25/18 Sotalol HCl [Betapace] 80 mg PO BID 09/25/18 Timolol 0.5% Ophth Drops [Timoptic 0.5% Ophth Drops] 1 drops LEFTEYE BID 09/25/18 Valsartan 320 mg PO DAILY 09/25/18 glipiZIDE ER [Glucotrol Xl] 2.5 mg PO DAILY 09/25/18 metFORMIN [Glucophage] 500 mg PO TIDWM 09/25/18 Atorvastatin Calcium 20 mg PO QPM 08/27/19 Doxazosin [Cardura] 4 mg PO QPM 08/27/19 Doxazosin [Cardura] 4 mg PO QPM 08/27/19 Furosemide 10 mg PO DAILY 08/27/19 Warfarin [Coumadin] 5 mg PO DAILY 08/27/19 Objective - Vital Signs/Intake & Output Vital Signs: Vital Signs x48h Temp Pulse Resp BP Pulse Ox 08/29/19 12:34 36.2 C L 53 L 16 154/62 H 98 08/29/19 08:14 36.6 C 60 16 160/58 H 94 Intake & Output: Intake & Output 08/26/19 08/27/19 08/28/19 08/29/19 23:59 23:59 23:59 23:59 Intake Total 350 3012.658 510 Output Total 1200 1025 Balance 350 1812.658 -515 - Objective General Appearance: positive: No acute distress, Alert. negative: Lethargic Eyes Bilateral: positive: Normal inspection, PERRL, No lid inflammation, Conjunctivae nml ENT: positive: ENT inspection nml, Pharynx nml, No signs of dehydration. neg ative: Purulent nasal drainage, Pharyngeal erythema, Oral lesions Neck: positive: Nml inspection, Thyroid nml, No JVD, Trachea midline. negative: Thyromegaly, Lymphadenopathy (R), Lymphadenopathy (L), Stiff neck, Swelling/bruising, Tracheal deviation Respiratory: positive: Chest non-tender, No respiratory distress, Breath sounds nml. negative: Wheezes, Rales, Rhonchi Cardiovascular: positive: Regular rate & rhythm, No murmur, No gallop. negative: Irregularly irregular, Extrasystoles, Tachycardia, Bradycardia, JVD present, Systolic murmur, Diastolic murmur Peripheral Pulses: 2+ Radial (R), 2+ Radial (L), 2+ Dorsalis pedis (R), 2+ Dorsalis pedis (L) Abdomen: positive: Non-tender, No organomegaly, Nml bowel sounds, No distention. negative: Tenderness, Guarding, Rebound Back: positive: Nml inspection. negative: CVA tenderness (R), CVA tenderness (L) Skin: positive: Color nml, No rash, Warm, Dry. negative: Cyanosis, Diaphoresis, Pallor Extremities: positive: Non-tender, Nml appearance. negative: Calf tenderness, Joint swelling, Laurel's sign/cords Neurologic/Psychiatric: positive: Sensation nml, Mood/affect nml. negative: Weakness, Sensory loss, Facial droop, Slurred/abnml speech, Depressed mood/affect - Lab Results Fish Bones: 08/29/19 05:58 08/29/19 05:58 Other Labs: Lab Results x24hrs 08/29/19 08/29/19 08/29/19 Range/Units 11:33 08:07 05:58 WBC (4.8-10.8) x10^3/uL RBC (4.20-5.40) 10^6/uL Hgb (12.0-16.0) g/dL Hct (37.0-47.0) % MCV (81.0-99.0) fL MCH (27.0-31.0) pg MCHC (32.0-36.0) g/dL RDW (12.0-15.0) % Plt Count (130-450) 10^3/uL MPV (7.9-10.8) fL Neut # (Auto) (1.5-6.6) 10^3/uL Lymph # (Auto) (1.5-3.5) 10^3/uL [place] # (Auto) (0.0-1.0) 10^3/uL Eos # (Auto) (0.0-0.7) 10^3/uL Baso # (Auto) (0.0-0.1) 10^3/uL Absolute Nucleated RBC x10^3/uL Nucleated RBC % /100WBC PT 19.6 H (9.9-12.6) secs INR 1.8 H (0.8-1.2) Sodium (135-145) mmol/L Potassium (3.5-5.0) mmol/L Chloride (101-111) mmol/L Carbon Dioxide (21-32) mmol/L Anion Gap (6-13) BUN (6-20) mg/dL Creatinine (0.4-1.0) mg/dL Estimated GFR (MDRD) (>89) Glucose (70-100) mg/dL POC Whole Bld Glucose 256 H 156 H (70 - 100) mg/dL Calcium (8.5-10.3) mg/dL 08/29/19 08/29/19 08/28/19 Range/Units 05:58 05:58 20:04 WBC 6.5 (4.8-10.8) x10^3/uL RBC 3.17 L (4.20-5.40) 10^6/uL Hgb 9.6 L (12.0-16.0) g/dL Hct 30.2 L (37.0-47.0) % MCV 95.3 (81.0-99.0) fL MCH 30.3 (27.0-31.0) pg MCHC 31.8 L (32.0-36.0) g/dL RDW 13.5 (12.0-15.0) % Plt Count 135 (130-450) 10^3/uL MPV 9.6 (7.9-10.8) fL Neut # (Auto) 4.5 (1.5-6.6) 10^3/uL Lymph # (Auto) 0.9 L (1.5-3.5) 10^3/uL [place] # (Auto) 0.8 (0.0-1.0) 10^3/uL Eos # (Auto) 0.1 (0.0-0.7) 10^3/uL Baso # (Auto) 0.0 (0.0-0.1) 10^3/uL Absolute Nucleated RBC 0.00 x10^3/uL Nucleated RBC % 0.0 /100WBC PT (9.9-12.6) secs INR (0.8-1.2) Sodium 132 L (135-145) mmol/L Potassium 3.7 (3.5-5.0) mmol/L Chloride 97 L (101-111) mmol/L Carbon Dioxide 28 (21-32) mmol/L Anion Gap 7.0 (6-13) BUN 23 H (6-20) mg/dL Creatinine 0.8 (0.4-1.0) mg/dL Estimated GFR (MDRD) 68 L (>89) Glucose 173 H (70-100) mg/dL POC Whole Bld Glucose 230 H (70 - 100) mg/dL Calcium 8.5 (8.5-10.3) mg/dL 08/28/19 08/28/19 08/28/19 Range/Units 16:32 11:19 11:07 WBC (4.8-10.8) x10^3/uL RBC (4.20-5.40) 10^6/uL Hgb (12.0-16.0) g/dL Hct (37.0-47.0) % MCV (81.0-99.0) fL MCH (27.0-31.0) pg MCHC (32.0-36.0) g/dL RDW (12.0-15.0) % Plt Count (130-450) 10^3/uL MPV (7.9-10.8) fL Neut # (Auto) (1.5-6.6) 10^3/uL Lymph # (Auto) (1.5-3.5) 10^3/uL [place] # (Auto) (0.0-1.0) 10^3/uL Eos # (Auto) (0.0-0.7) 10^3/uL Baso # (Auto) (0.0-0.1) 10^3/uL Absolute Nucleated RBC x10^3/uL Nucleated RBC % /100WBC PT (9.9-12.6) secs INR (0.8-1.2) Sodium (135-145) mmol/L Potassium (3.5-5.0) mmol/L Chloride (101-111) mmol/L Carbon Dioxide (21-32) mmol/L Anion Gap (6-13) BUN (6-20) mg/dL Creatinine (0.4-1.0) mg/dL Estimated GFR (MDRD) (>89) Glucose (70-100) mg/dL POC Whole Bld Glucose 234 H 223 H 210 H (70 - 100) mg/dL Calcium (8.5-10.3) mg/dL 08/28/19 08/27/19 08/27/19 Range/Units 07:45 20:48 16:29 WBC (4.8-10.8) x10^3/uL RBC (4.20-5.40) 10^6/uL Hgb (12.0-16.0) g/dL Hct (37.0-47.0) % MCV (81.0-99.0) fL MCH (27.0-31.0) pg MCHC (32.0-36.0) g/dL RDW (12.0-15.0) % Plt Count (130-450) 10^3/uL MPV (7.9-10.8) fL Neut # (Auto) (1.5-6.6) 10^3/uL Lymph # (Auto) (1.5-3.5) 10^3/uL [place] # (Auto) (0.0-1.0) 10^3/uL Eos # (Auto) (0.0-0.7) 10^3/uL Baso # (Auto) (0.0-0.1) 10^3/uL Absolute Nucleated RBC x10^3/uL Nucleated RBC % /100WBC PT (9.9-12.6) secs INR (0.8-1.2) Sodium (135-145) mmol/L Potassium (3.5-5.0) mmol/L Chloride (101-111) mmol/L Carbon Dioxide (21-32) mmol/L Anion Gap (6-13) BUN (6-20) mg/dL Creatinine (0.4-1.0) mg/dL Estimated GFR (MDRD) (>89) Glucose (70-100) mg/dL POC Whole Bld Glucose 154 H 210 H 127 H (70 - 100) mg/dL Calcium (8.5-10.3) mg/dL ABX Reporting Has patient been on IV antibiotics over the past 48 hours?: Yes Sepsis Event Note (H) - Evaluation Current Stage of Sepsis: Ruled out Assessment/Plan - Problem List (1) Urinary tract infection Impression: 08/29 The Ecoli is sensitive to Rocephin, continue Rocephin 08/28 UA reveals positive Ecoli, sensitivity study is still pending continue treat with Rocephin UA analysis reveals UTI with pyuria. pt denies dysuria and hematuria. plan:Treat with Rocephin UA culture and sensitivity study are pending now, will followup (2)bacteremia 08/29 blood culture in both tube reveals positive for Ecoli, sensitive is pending, is likely similar to UA culture. pt has no elevated WBC, no fever. continue Rocephin (3)acute urinary retention nurse report pt can not urinate, since from today morning. pt was ordered Flomax but it seems not help order US of abdomen, will followup if any gilmer or stenosis in urine track first do bladder scan and then insert Montemayor if bladder has significant urine remain. (2) Weakness generalized Conclusion/Plan: 08/29 improved, continue PT/OT evaluation and treatment 08/28 pt was treated evaluation with PT/OT continue PT/OT pt present acute generalized weakness. it is likely caused by her UTI infection plan: treat underline infection consult with PT/OT fall precaution (3) Diabetes Conclusion/Plan: 08/28, A1C is 7.2, continue slide scale, ACHS, and hypoglycemia protocol pt did not have insulin at her home meds, she took meds to control. glucose was 190 Plan: start on slide scale for insulin ACHS to check glucose level check A1C (4) Chronic a-fib Conclusion/Plan: stable HR. pt had coumadin. INR is 2.2 today. plan: continue home Sotalol continue home Coumadin daily monitor PT/INR tele and vital monitor (5) HTN (hypertension) Conclusion/Plan: stable, reconcile home meds Losartan and Sotalol vital monitor (6) HLD (hyperlipidemia) Conclusion/Plan: stable, reconcile home Lipitor Qualifiers: Urinary tract infection type: acute cystitis Hematuria presence: without hematuria Qualified Code(s): N30.00 - Acute cystitis without hematuria
--- NOTE | 2019-08-29 19:28 | Ultrasound Report ---
Reason: acute urinary retention Procedure Date: 08/29/2019 Accession Number: [id number] / [id number] Procedure: US - Retroperitoneal CPT Code: FULL RESULT: EXAM: RENAL ULTRASOUND EXAM DATE: 08/29/2019 06:25 PM. CLINICAL HISTORY: Acute urinary retention. COMPARISON: RETROPERITONEAL 11/19/2018 8:07 PM. TECHNIQUE: Real-time scanning was performed with static images obtained. FINDINGS: Right Kidney: 9.5 x 4.5 x 4.4 cm. Echogenic right kidney. Mild right perinephric fluid. No hydronephrosis. Left Kidney: 9.8 x 4.2 x 4.6 cm. No hydronephrosis is seen. Limited visualization due to limited penetration including limited by overlying bowel gas. Bladder: The bladder is decompressed with a Montemayor catheter in place. Other: Limited exam due to overlying bowel gas and patient's limited movement. IMPRESSION: Echogenic right kidney. Mild right perinephric fluid. No hydronephrosis. Limited visualization. See above. RADIA
[2019-08-29] MEDS ORDERED: INSULIN GLARGINE 300 UNIT/3 ML PEN SUBQ SCH (21:00)
[2019-08-29] MEDS: ATORVASTATIN 40 MG TABLET PO SCH (21:49)
[2019-08-29] MEDS: DOXAZOSIN 4 MG TABLET PO SCH (21:50)
[2019-08-30] MEDS: SODIUM CHLORIDE FLUSH 0.9% 10 ML SYRINGE IVP SCH ×2 (00:09→08:21)
[2019-08-30 06:52] LABS: BASOPHILS % (AUTO) 0.6 %; EOSINOPHILS # (AUTO) 0.2 10^3/uL (0.0-0.7); EOSINOPHILS % (AUTO) 2.9 %; HGB - HEMOGLOBIN 9.6 g/dL (12.0-16.0); LYMPHOCYTES # (AUTO) 1.1 10^3/uL (1.5-3.5); LYMPHOCYTES % (AUTO) 20.5 %; MEAN CORPUSCULAR HEMOGLOBIN 30.4 pg (27.0-31.0); MEAN CORPUSCULAR VOLUME 94.9 fL (81.0-99.0); MEAN PLATELET VOLUME 9.9 fL (7.9-10.8); MONOCYTES # (AUTO) 0.6 10^3/uL (0.0-1.0); MONOCYTES % (AUTO) 11.1 %; NEUTROPHILS # (AUTO) 3.3 10^3/uL (1.5-6.6); NEUTROPHILS % (AUTO) 63.9 %; PLT - PLATELET COUNT 148 10^3/uL (130-450); RED BLOOD COUNT 3.16 10^6/uL (4.20-5.40); RED CELL DISTRIBUTION WIDTH 13.2 % (12.0-15.0); WHITE BLOOD COUNT 5.2 x10^3/uL (4.8-10.8)
[2019-08-30 06:57] LABS: CREATININE 0.7 mg/dL (0.4-1.0)
[2019-08-30 07:06] LABS: INR 2.2 (0.8-1.2); PT - PROTHROMBIN TIME 24.1 secs (9.9-12.6)
[2019-08-30 07:41] VITALS: BP 148/55
[2019-08-30] MEDS: WARFARIN 5 MG TABLET PO SCH (08:16)
[2019-08-30] MEDS: TAMSULOSIN 0.4 MG CAPSULE PO SCH (08:16)
[2019-08-30] MEDS: FAMOTIDINE 20 MG TABLET PO SCH (08:17)
[2019-08-30] MEDS: LOSARTAN 50 MG TABLET PO SCH (08:17)
[2019-08-30] MEDS: INSULIN ASPART 300 UNIT/3 ML PEN SUBQ SCH (08:19)
[2019-08-30] MEDS: POLYETHYLENE GLYCOL 3350 17 GM PACKET PO SCH (08:21)
[2019-08-30] MEDS: TIMOLOL 0.5% OPHTH DROPS LEFTEYE SCH (11:41)
--- NOTE | 2019-08-30 11:46 | Discharge Plan ---
Discharge Plan Problem Reviewed?: Yes Disposition: 06 Home Health Service Condition: Poor Prescriptions: Cephalexin [Keflex] 500 mg PO BID #14 capsule Saccharomyces Boulardii [Florastor] 250 mg PO DAILY #7 capsule Diet: Diabetic Activity Restrictions: Activity as Tolerated Shower Restrictions: No (fall precaution) Instruction Topics: Cephalexin tablets or capsules, ED Retention Urinary Female, Catheter Bag Urinary Empty Clean Health Concerns: UTI, urinary retention Plan of Treatment: you were found to have UTI and bacteremia. you were treated antibiotics in hospital. you are prescribed antibiotics for finishing the treatment course. you were found to have urinary retention, now you are required to have Montemayor. Home health nurse will help you. Please continue take your home meds Doxazosin, followup your PCP and urologist for further management. Care Goals: stabilization and improvement of your medical conditions Assessment: assessment as the above Additional Instructions or Follow Up instructions: you may followup your PCP in one week, followup urologist as out-pt for management of your urinary retention. Should your symptoms return or worsen, you may present ER or call 911 for help. Follow-Up Care: Outpatient Rehab - PT No Smoking: If you smoke, Please STOP! Call for help. Follow-up with: Carlie Coates PA [Primary Care Provider] -
--- NOTE | 2019-08-30 12:04 | DISCHARGE SUMMARY ---
Discharge Summary Discharge Date: 08/30/19 Discharging Provider: VILLA Primary Care Provider: Dr. Sara Coates Condition at Discharge: Poor Discharge Disposition: Home Health Service Discharge Facility Name: home - DIAGNOSES Admission Diagnoses: (1) Urinary tract infection (2) Weakness generalized (3) Diabetes (4) Chronic a-fib (5) HTN (hypertension) (6) HLD (hyperlipidemia) Discharge Diagnoses with Status of Each Condition: (1) Urinary tract infection UA reveals positive for Ecoli. pt is prescribed Keflex for her continue finish the treatment course (2)bacteremia blood culture reveals positive for Ecoli. pt has no fever, no elevated WBC. According to sensitive study, pt is prescribed Keflex to finish the treatment course (3)acute urinary retention pt can not urinate by herself at hospital. pt has Montemayor now. home health nurse is arranged for Montemayor care. pt is advised to followup urologist as needed (4) Weakness generalized improved as her baseline. out-PT is recommended (5) Diabetes stable (6) Chronic a-fib stable (7) HTN (hypertension) stable (8) HLD (hyperlipidemia) stable - HPI History of Present Illness: Ms. Almendarez is a88 y/o female With history of atrial fibrillation on Coumadin, HLD, hypertension, incontinence, osteoarthritis, and diabetes who preset ER complain of generalized weakness. Pt report she usually walk with her walker. but she report she is very difficult to get up to go to the bathroom last night because she really did not have the strength to make her feet move forward. her tried help let her walk, but she eventually slumped to the ground. She report she did not injure herself. They eventually called 911 but she initially refused transport to the hospital. This morning she tried to get out of bed again but she found that she was still too weak to even sit up. Finally pt agreed go to ER. pt denies fever, chill, dysuria, hematuria, abdominal pain, diarrhea or vomiting, nausea. UA reveals positive UTI with pyuria. CXR reveals unremarkable. Lab was unremarkable except elevated glucose level. Pt was afebrile, hemodynamically stable now. pt is admitted in observation for further evaluation and treatment. - HOSPITAL COURSE Hospital Course: pt was admitted for generalized weakness. pt was found to have UTI, then pt was found to have bacteremia. pt has no elevated WBC or fever. pt was evaluated and treated by PT, pt was recommended to have out-PT. pt was treated with antibiotics Rocephin. After treatment, pt's strength returned to her baseline. pt also developed urinary retention. pt's daughter report pt had urinary retention problem before. pt was prescribed antibiotic for d/c according to sensitive study in UA and blood culture. the detail hospital course is as the below (1) Urinary tract infection UA reveals positive for Ecoli. pt is prescribed Keflex for her continue finish the treatment course (2)bacteremia blood culture reveals positive for Ecoli. pt has no fever, no elevated WBC. According to sensitive study, pt is prescribed Keflex to finish the treatment course (3)acute urinary retention pt can not urinate by herself at hospital. pt has Montemayor now. home health nurse is arranged for Montemayor care. pt is advised to followup urologist as needed (4) Weakness generalized improved as her baseline. out-PT is recommended (5) Diabetes stable (6) Chronic a-fib stable (7) HTN (hypertension) stable (8) HLD (hyperlipidemia) stable - ALLERGIES Allergies/Adverse Reactions: Allergies Allergy/AdvReac Type Severity Reaction Status Date / Time No Known Drug Allergies Allergy Verified 08/27/19 10:58 - MEDICATIONS Home Medications: Ambulatory Orders Medication Instructions Recorded Confirmed Biotin 1 cap PO DAILY 09/25/18 08/27/19 Cholecalciferol (Vitamin D3) 2,000 unit PO DAILY 09/25/18 08/27/19 [Vitamin D3] [place]-3S/Dha/Epa/Fish Oil [Fish 1 cap PO DAILY 09/25/18 08/27/19 Oil 1,200 mg Softgel] Sotalol HCl [Betapace] 80 mg PO BID 09/25/18 08/27/19 Timolol 0.5% Ophth Drops [Timoptic 1 drops LEFTEYE BID 09/25/18 08/27/19 0.5% Ophth Drops] Valsartan 320 mg PO DAILY 09/25/18 08/27/19 glipiZIDE ER [Glucotrol Xl] 2.5 mg PO DAILY 09/25/18 08/27/19 metFORMIN [Glucophage] 500 mg PO TIDWM 09/25/18 08/27/19 Atorvastatin Calcium 20 mg PO QPM 08/27/19 08/27/19 Doxazosin [Cardura] 4 mg PO QPM 08/27/19 08/27/19 Furosemide 10 mg PO DAILY 08/27/19 08/27/19 Warfarin [Coumadin] 5 mg PO DAILY 08/27/19 08/27/19 Cephalexin [Keflex] 500 mg PO BID #14 capsule 08/30/19 Saccharomyces Boulardii [Florastor] 250 mg PO DAILY #7 capsule 08/30/19 - PHYSICAL EXAM AT DISCHARGE General Appearance: positive: No acute distress, Alert. negative: Lethargic Eyes Bilateral: positive: Normal inspection, PERRL, No lid inflammation, Conjunctivae nml ENT: positive: ENT inspection nml, Pharynx nml, No signs of dehydration. negative: Purulent nasal drainage, Pharyngeal erythema, Oral lesions Neck: positive: Nml inspection, Thyroid nml, No JVD, Trachea midline. negative: Thyromegaly, Lymphadenopathy (R), Lymphadenopathy (L), Stiff neck, Swelling/bruising, Tracheal deviation Respiratory: positive: Chest non-tender, No respiratory distress, Breath sounds nml. negative: Wheezes, Rales, Rhonchi Cardiovascular: positive: Regular rate & rhythm, No murmur, No gallop. negative: Irregularly irregular, Extrasystoles, Tachycardia, Bradycardia, JVD present, Systolic murmur, Diastolic murmur Peripheral Pulses: positive: 2+ Abdomen: positive: Non-tender, No organomegaly, Nml bowel sounds, No distention. negative: Tenderness, Guarding, Rebound Back: positive: Nml inspection. negative: CVA tenderness (R), CVA tenderness (L) Skin: positive: Color nml, No rash, Warm, Dry. negative: Cyanosis, Diaphoresis, Pallor Extremities: positive: Non-tender, Full ROM, Nml appearance. negative: Calf tenderness, Joint swelling, Laurel's sign/cords Neurologic/Psychiatric: positive: Oriented x3, Motor nml, Sensation nml, Mood/affect nml. negative: Weakness, Sensory loss, Facial droop, Slurred/abnml speech, Depressed mood/affect - LABS Result Diagrams: 08/30/19 06:08 08/30/19 06:08 - SEPSIS Current Stage of Sepsis: Ruled out - FOLLOW UP Follow Up: you were found to have UTI and bacteremia. you were treated antibiotics in hospital. you are prescribed antibiotics for finishing the treatment course. you were found to have urinary retention, now you are required to have Montemayor. Home health nurse will help you. Please continue take your home meds Doxazosin, followup your PCP and urologist for further management. you may followup your PCP in one week, followup urologist as out-pt for management of your urinary retention. Should your symptoms return or worsen, you may present ER or call 911 for help. - TIME SPENT Time Spent in Discharge (Minutes): 55
== END 2019-08-30 13:19 | disposition home health service (06) | DRG 690 ==
LOC: EDUNIT# → ED 10:49 → MS2 12:49 → OBSVTOIN 08-29 15:23
PROVIDERS: ADMIT Nurse Practitioner Gerontology; ATTEND Nurse Practitioner Gerontology
DX: N30.00 Acute cystitis without hematuria (principal); R78.81 Bacteremia; B96.20 Unspecified Escherichia coli [E. coli] as the cause of diseases classified elsewhere; I48.2 Chronic atrial fibrillation; I10 Essential (primary) hypertension; E78.5 Hyperlipidemia, unspecified; R32 Unspecified urinary incontinence; M19.90 Unspecified osteoarthritis, unspecified site; E11.9 Type 2 diabetes mellitus without complications; R33.9 Retention of urine, unspecified; Z66 Do not resuscitate; Z79.01 Long term (current) use of anticoagulants; Z79.84 Long term (current) use of oral hypoglycemic drugs
CPT/HCPCS: 36415; 51701; 71045; 76770; 80048; 80053; 81001; 83036; 83605; 83690; 83735; 85025; 85610; 87040; 87086; 87181; 96361; 96365; 96366; 96367; 97116; 97161; 97166; 97530; 97535; 99285; A9270; G0378; J1815; 81003

== ENCOUNTER 2019-09-06 15:18 | Emergency (ER) | payer MEDICARE, OTHER ==
--- NOTE | 2019-09-06 15:53 | ED Physician Documentation ---
PD HPI FEMALE - Stated complaint Stated Complaint: BLOOD IN URINE - Chief complaint Chief Complaint: General - History obtained from History obtained from: Patient - History of Present Illness Timing - onset: Today Timing - duration: Hours (3) Timing - details: Abrupt onset Pain level max: 0 Associated symptoms: Back pain (chronic). No: Fever, Vaginal bleeding, Dysuria Recently seen: Emergency Dept - Additional information Additional information: This is an 88-year-old woman who presents with her daughter who has power of tax associate attorney complaints that she was seen in the emergency department last week diagnosed with urinary tract infection and had some urinary retention so they put in a Mont[place]ayor catheter which she was discharged home with. She finished her last antibiotic today and then noted what looked like dark blood in the Montemayor leg bag. Patient is on Coumadin for A. fib. She has not had any excessive bleeding. She denies any pain other than her chronic pain. No dizziness, no fever. She is not diabetic. She does live at an assisted living. Review of Systems Constitutional: denies: Fever GI: denies: Nausea, Vomiting : reports: Hematuria, Montemayor Problem Musculoskeletal: reports: Back pain (chronic) Neurologic: denies: Generalized weakness, Near syncope, Syncope Endocrine: reports: Easy bruising / bleeding (on Coumadin) PD PAST MEDICAL HISTORY - Past Medical History Cardiovascular: Hypertension, High cholesterol, Atrial fibrillation Endocrine/Autoimmune: Type 2 diabetes : Incontinence Musculoskeletal: Osteoarthritis - Past Surgical History Past Surgical History: No General: Cholecystectomy Ortho: Spine surgery /STRAIGHT CUTTER: Hysterectomy HEENT: Cataracts, Other - Present Medications Home Medications: Ambulatory Orders Medication Instructions Recorded Confirmed Biotin 1 cap PO DAILY 09/25/18 08/27/19 Cholecalciferol (Vitamin D3) 2,000 unit PO DAILY 09/25/18 08/27/19 [Vitamin D3] Delta-3S/Dha/Epa/Fish Oil [Fish 1 cap PO DAILY 09/25/18 08/27/19 Oil 1,200 mg Softgel] Sotalol HCl [Betapace] 80 mg PO BID 09/25/18 08/27/19 Timolol 0.5% Ophth Drops [Timoptic 1 drops LEFTEYE BID 09/25/18 08/27/19 0.5% Ophth Drops] Valsartan 320 mg PO DAILY 09/25/18 08/27/19 glipiZIDE ER [Glucotrol Xl] 2.5 mg PO DAILY 09/25/18 08/27/19 metFORMIN [Glucophage] 500 mg PO TIDWM 09/25/18 08/27/19 Atorvastatin Calcium 20 mg PO QPM 08/27/19 08/27/19 Doxazosin [Cardura] 4 mg PO QPM 08/27/19 08/27/19 Furosemide 10 mg PO DAILY 08/27/19 08/27/19 Warfarin [Coumadin] 5 mg PO DAILY 08/27/19 08/27/19 Cephalexin [Keflex] 500 mg PO BID #14 capsule 08/30/19 Saccharomyces Boulardii [Florastor] 250 mg PO DAILY #7 capsule 08/30/19 Amox/Clav 875/125 [Augmentin] 1 each PO Q12H #20 tablet 09/06/19 - Allergies Allergies/Adverse Reactions: Allergies Allergy/AdvReac Type Severity Reaction Status Date / Time morphine Allergy Unknown Verified 08/31/19 11:27 - Social History Does the pt smoke?: No Smoking Status: Never smoker Does the pt drink ETOH?: No Does the pt have substance abuse?: No - Immunizations Immunizations are current?: Yes - POLST Patient has POLST: No PD ED PE NORMAL - Vitals Vital signs reviewed: Yes Results - Vitals Vitals: Vital Signs - 24 hr 09/06/19 09/06/19 15:32 17:56 Temperature 36.3 C L Heart Rate 71 65 Respiratory 14 18 Rate Blood Pressure 163/84 H 195/61 H O2 Saturation 97 94 Oxygen O2 Source Room air - Labs Labs: Laboratory Tests 09/06/19 09/06/19 09/06/19 16:00 16:00 16:00 WBC 5.9 RBC 3.76 L Hgb 11.3 L Hct 36.0 L MCV 95.7 MCH 30.1 MCHC 31.4 L RDW 13.7 Plt Count 252 MPV 8.9 Neut # (Auto) 4.2 Lymph # (Auto) 1.1 L [place] # (Auto) 0.4 Eos # (Auto) 0.1 Baso # (Auto) 0.0 Absolute Nucleated RBC 0.00 Nucleated RBC % 0.0 PT 36.2 H INR 3.4 H Sodium 135 Potassium 3.9 Chloride 95 L Carbon Dioxide 28 Anion Gap 12.0 BUN 14 Creatinine 0.8 Estimated GFR (MDRD) 68 L Glucose 203 H Calcium 9.0 Urine Color Urine Clarity Urine pH Ur Specific [place] Urine Protein Urine Glucose (UA) Urine Ketones Urine Occult Blood Urine Nitrite Urine Bilirubin Urine Urobilinogen Ur Leukocyte Esterase Urine RBC Urine WBC Ur Squamous Epith Cells Urine Bacteria Ur Microscopic Review Urine Culture Comments 09/06/19 16:31 WBC RBC Hgb Hct MCV MCH MCHC RDW Plt Count MPV Neut # (Auto) Lymph # (Auto) [place] # (Auto) Eos # (Auto) Baso # (Auto) Absolute Nucleated RBC Nucleated RBC % PT INR Sodium Potassium Chloride Carbon Dioxide Anion Gap BUN Creatinine Estimated GFR (MDRD) Glucose Calcium Urine Color BROWN Urine Clarity CLOUDY Urine pH 6.0 Ur Specific [place] 1.010 Urine Protein 30 H Urine Glucose (UA) NEGATIVE Urine Ketones NEGATIVE Urine Occult Blood LARGE H Urine Nitrite POSITIVE H Urine Bilirubin NEGATIVE Urine Urobilinogen 0.2 (NORMAL) Ur Leukocyte Esterase SMALL H Urine RBC TNTC H Urine WBC 11-25 H Ur Squamous Epith Cells RARE Squamous Urine Bacteria Many H Ur Microscopic Review INDICATED Urine Culture Comments INDICATED PD MEDICAL DECISION MAKING - ED course Complexity details: reviewed old records, reviewed results, re-evaluated patient, d/w patient, d/w family ED course: Patient does have an INR of 3.4. Her urinalysis still shows indication for culture and that is been set up. I reviewed her urine culture from previously she had E. coli that was sensitive to Levaquin resistant to ampicillin, sensitive to Augmentin. She also has a positive blood culture for E. coli but no signs of sepsis at this time. In fact she is been a little hypertensive which her daughter plays off to white coat syndrome. We will place her on Levaquin. The catheter appears to be draining appropriately. She is to hold her Coumadin tonight and either consult with her primary care provider about further dosing or hold it Saturday again as she has an appointment on Saturday. Return if she has vomiting, fever there is no urine draining in the catheter. 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 Hold the Coumadin dose tonight. Contact the vocational rehabilitation administrator about further dosing or hold it Saturday as well before your appointment with the primary care provider on Saturday. Continue to drink plenty of water. The urine may continue to be bloody but as long as the catheter is draining the urine there is no need to be reevaluated for that at this time. Return if problems arise and keep the appointment with your primary care provider on Saturday as scheduled.
[2019-09-06 16:07] LABS: BASOPHILS % (AUTO) 0.7 %; EOSINOPHILS # (AUTO) 0.1 10^3/uL (0.0-0.7); EOSINOPHILS % (AUTO) 1.5 %; HGB - HEMOGLOBIN 11.3 g/dL (12.0-16.0); LYMPHOCYTES # (AUTO) 1.1 10^3/uL (1.5-3.5); LYMPHOCYTES % (AUTO) 18.5 %; MEAN CORPUSCULAR HEMOGLOBIN 30.1 pg (27.0-31.0); MEAN CORPUSCULAR HGB CONC 31.4 g/dL (32.0-36.0); MEAN CORPUSCULAR VOLUME 95.7 fL (81.0-99.0); MEAN PLATELET VOLUME 8.9 fL (7.9-10.8); MONOCYTES # (AUTO) 0.4 10^3/uL (0.0-1.0); MONOCYTES % (AUTO) 7.1 %; NEUTROPHILS # (AUTO) 4.2 10^3/uL (1.5-6.6); PLT - PLATELET COUNT 252 10^3/uL (130-450); RED BLOOD COUNT 3.76 10^6/uL (4.20-5.40); RED CELL DISTRIBUTION WIDTH 13.7 % (12.0-15.0); WHITE BLOOD COUNT 5.9 x10^3/uL (4.8-10.8)
[2019-09-06 16:10] LABS: INR 3.4 (0.8-1.2); PT - PROTHROMBIN TIME 36.2 secs (9.9-12.6)
[2019-09-06 16:13] LABS: CREATININE 0.8 mg/dL (0.4-1.0)
[2019-09-06 16:45] LABS: BILIRUBIN,URINE NEGATIVE (NEGATIVE); GLUCOSE, URINE (UA) NEGATIVE (NEGATIVE); KETONES,URINE (UA) NEGATIVE (NEGATIVE); LEUKOCYTE ESTERASE, URINE SMALL (NEGATIVE); NITRITE,URINE POSITIVE (NEGATIVE); OCCULT BLOOD,URINE LARGE (NEGATIVE); PROTEIN,URINE 30 mg/dL (NEGATIVE); UROBILINOGEN,URINE 0.2 (NORMAL) E.U./dL (NORMAL)
[2019-09-06 16:52] LABS: CLARITY,URINE CLOUDY (CLEAR)
[2019-09-06 17:11] LABS: BACTERIA,URINE Many /HPF (None Seen); RBC,URINE TNTC /HPF (0-5); SQUAMOUS EPITHELIAL CELL,UR RARE Squamous (<= Few)
[2019-09-06 17:57] VITALS: BP 195/61
[2019-09-06] MEDS ORDERED: AMOX/CLAV 875 MG/125 MG TABLET PO STA (18:07)
== END 2019-09-06 18:30 | disposition home or self-care (01) ==
LOC: ED 15:18
DX: N39.0 Urinary tract infection, site not specified (principal); R31.9 Hematuria, unspecified; D68.4 Acquired coagulation factor deficiency; Z79.01 Long term (current) use of anticoagulants; I48.91 Unspecified atrial fibrillation; I10 Essential (primary) hypertension; E11.9 Type 2 diabetes mellitus without complications; Z79.84 Long term (current) use of oral hypoglycemic drugs
CPT/HCPCS: 36415; 80048; 81001; 85025; 85610; 87086; 87181; 99281; 99283; A9270; 81003